=== PATIENT | female | born 1945 | race Caucasian/White ===

== ENCOUNTER 2024-02-10 15:57 | Inpatient (IN) | payer MEDICARE, SELFPAY ==
[2024-02-10] VITALS (27 sets, daily range): BP systolic 137–190; BP diastolic 53–100; PULSE 90–123; TEMP 35.5–36.3; O2SAT 81–97; BMI 13.7; BMI 11.0; BMI 10.6
--- NOTE | 2024-02-10 16:21 | XR_ITS ---
The [address] [address] Patient Name: GIUSEPPE MARTIN MRN: [facility]:[id number] date: 1945 Sex: F Assigned Patient Location: ED.MAIN Current Patient Location: ED.MAIN Accession/Order Number: [id number] Exam Date: 02/10/2024 16:40 Report Date: 02/10/2024 17:28 At the request of: JARED LOPEZ Procedure: XR chest 1V EXAM: XR chest 1V 02/10/2024. FINDINGS: A total of 2 images were obtained. HISTORY: weak XR/XR chest 1V IMPRESSION: The heart size is top normal. Atherosclerotic changes of aorta and its branches are noted. Mild chronic biapical pleural parenchymal fibrotic changes with background pulmonary hyperinflation. No overt edema, failure, effusion or pneumonia otherwise suspected. There is no pneumothorax. Degenerative changes of the spine are evident. There is a compression fracture deformity of the upper lumbar spine faintly noted. This may be better evaluated with lumbar spinal radiographs if indicated. Electronically authenticated by: RENNY FAN Date: 02/10/2024 17:28
--- NOTE | 2024-02-10 16:21 | CT_ITS ---
The [address] [address] Patient Name: GIUSEPPE MARTIN MRN: [facility]:[id number] date: 1945 Sex: F Assigned Patient Location: ED.MAIN Current Patient Location: ED.MAIN Accession/Order Number: [id number] Exam Date: 02/10/2024 17:00 Report Date: 02/10/2024 17:29 At the request of: JARED LOPEZ Procedure: CT head/brain wo con HEAD CT WITHOUT CONTRAST, 02/10/2024 5:00 PM EDT: CLINICAL HISTORY: weak, confused. COMPARISON: None. TECHNIQUE: Noncontrast CT imaging was performed from skull base to the vertex. Sagittal and coronal reconstructions performed. Dose reduction techniques were achieved by using automated exposure control and/or adjustment of mA and/or kV according to patient size and/or use of iterative reconstruction technique. FINDINGS: Ventricular and sulcal size is normal for the patient's age. There are moderate chronic small vessel ischemic changes. 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 There is no mass effect, midline shift or intracranial hemorrhage. There is no evidence of acute infarction. There are no extra axial fluid collections. Visualized paranasal sinuses, mastoid air cells and orbital contents are unremarkable. CT/CT head/brain wo con IMPRESSION: No acute intracranial abnormality. Electronically authenticated by: TYLER JAVIER Date: 02/10/2024 17:29
--- NOTE | 2024-02-10 16:21 | ECG_ITS ---
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
--- NOTE | 2024-02-10 16:23 | ED_ITS ---
HPI HPI - General Adult General Chief complaint: Weakness Stated complaint: WEAKNESS Time Seen by Provider: 02/10/24 15:58 Source: family Mode of arrival: ambulance Limitations: no limitations History of Present Illness HPI narrative: 78-year-old female presents by paramedics from her home for weakness. She lives by herself and apparently her brother was at the house. He called paramedics. The paramedics reported that her house was not well-kept and was disheveled. She had been sitting on the toilet and was covered in feces. She is unable to provide any history at all. At this point no further history is obtainable Related Data Allergies Allergy/AdvReac Type Severity Reaction Status Date / Time No Known Drug Allergies Allergy Verified 02/10/24 17:22 Opioid HPI Opioid Management Most Recent Opioid Data: No Data to Display Review of Systems ROS Narrative A ten point review of systems is negative except as noted above. Exam Narrative Exam Narrative: Nurses note and vital signs reviewed and patient is not hypoxic. General: The patient appears in no acute distress. She is cachectic. Skin: Warm, dry, no pallor noted. There is no rash noted. Head: Normocephalic, atraumatic Eye: Normal conjunctiva, no drainage Ears, Nose, Mouth, and Throat: oral mucosa is dry and there is a black coating on her tongue. Cardiovascular: Regular Rate and Rhythm, tachycardic Respiratory: Patient is in no distress, no accessory muscle use, lungs are clear to auscultation, no wheezing, rales or rhonchi Back: non-tender GI: Soft, scaphoid, no tenderness or mass Musculoskeletal: Extremities are quite thin, no deformity Neurological: She is awake. She knows her name but cannot tell me where she is or what year it is or why she is here Psychiatric: Not uncooperative Constitutional Vital Signs, click to edit/add: Last Vital Signs Temp 96.7 F L 02/10/24 17:42 Pulse 93 H 02/10/24 18:00 Resp 29 H 02/10/24 18:00 BP 137/65 02/10/24 18:00 Pulse Ox 94 L 02/10/24 18:00 O2 Del Method Room Air 02/10/24 16:53 Course Vital Signs Vital signs: Vital Signs Temperature 96 F L 02/10/24 16:01 Pulse Rate 122 H 02/10/24 16:01 Respiratory Rate 22 H 02/10/24 16:01 Blood Pressure 171/97 H 02/10/24 16:01 Pulse Oximetry 96 02/10/24 16:01 Oxygen Delivery Method Room Air 02/10/24 16:01 Temperature 96.7 F L 02/10/24 17:42 Pulse Rate 93 H 02/10/24 18:00 Respiratory Rate 29 H 02/10/24 18:00 Blood Pressure 137/65 02/10/24 18:00 Pulse Oximetry 94 L 02/10/24 18:00 Oxygen Delivery Method Room Air 02/10/24 16:53 Medical Decision Making MDM Narrative Medical decision making narrative: Sodium is mildly elevated at 157. CT brain shows no acute findings and chest x- ray shows no evidence of pneumonia. Urinalysis is not consistent with UTI. Influenza and COVID test are negative. WBC elevated at 19,000. She has a poor social situation. A family member came in and explained that she stays at home and up until now has been able to take care of herself. He feels that she is clearly unable to take care of herself any longer. She states that she has had memory issues which have been getting worse over months. She is being admitted. I do not have a focus of an infection. Differential Diagnosis Differential Diagnosis: Anemia, dehydration, stroke, dementia, pneumonia, UTI Lab Data Lab results reviewed: Yes I reviewed the patient's lab results Labs: Lab Results 02/10/24 02/10/24 02/10/24 Range/Units 16:25 16:30 16:44 WBC 19.4 H (4.0-11.0) 10^3/uL RBC 5.16 (4.20-5.40) 10^6/uL Hgb 16.1 H (12.0-16.0) g/dL Hct 50.8 H (36.0-48.0) % MCV 98.4 (81.0-99.0) fL MCH 31.2 (26.7-34.0) pg MCHC 31.7 (29.9-35.2) g/dL RDW 14.1 (11.0-15.0) % Plt Count 357 (150-450) 10^3/uL MPV 11.0 (9.5-13.5) fL Neut % (Auto) 83.5 H (43.0-75.0) % Lymph % (Auto) 7.7 L (20.5-60.0) % [place] % (Auto) 7.2 (1.7-12.0) % Eos % (Auto) 0.0 L (0.9-7.0) % Baso % (Auto) 0.3 (0.2-2.0) % Neut # (Auto) 16.2 H (1.4-6.5) 10^3/uL Lymph # (Auto) 1.5 (1.2-3.8) 10^3/uL [place] # (Auto) 1.4 H (0.3-0.8) 10^3/uL Eos # (Auto) 0.0 (0.0-0.7) 10^3/uL Baso # (Auto) 0.1 (0.0-0.1) 10^3/uL Abs Immat Gran (auto) 0.26 H (0.00-0.03) 10^3/uL Imm/Tot Granulo (auto) 1.3 H (0.0-0.5) % Sodium 157 H (136-145) mmol/L Potassium 3.6 (3.5-5.1) mmol/L Chloride 116 H (98-107) mmol/L Carbon Dioxide 25.2 (21.0-32.0) mmol/L Anion Gap 19.4 BUN 52.0 H (7.0-18.0) mg/dL Creatinine 1.20 H (0.55-1.02) mg/dL Est GFR ( Amer) 52 L (>=60) Est GFR (Non-Af Amer) 43 L (>=60) BUN/Creatinine Ratio 43.3 Glucose 141 H (74-106) mg/dL Lactate 3.0 H* (0.4-2.0) mmol/L Calcium 9.8 (8.5-10.1) mg/dL Total Bilirubin 0.8 (0.2-1.0) mg/dL Direct Bilirubin 0.2 (0.0-0.2) mg/dL AST 16 (15-37) U/L ALT 14 (14-59) U/L Alkaline Phosphatase 101 (46-116) U/L Troponin I High Sens 21.5 (4.0-51.3) pg/mL Total Protein 8.6 H (6.4-8.2) g/dL Albumin 3.7 (3.4-5.0) g/dL Globulin 4.9 g/dL Albumin/Globulin Ratio 0.8 Amylase 33 (25-115) U/L Lipase 37.0 (16.0-77.0) U/L Urine Color Yellow (YELLOW) Urine Clarity Clear (CLEAR) Urine pH 5.5 (5.0-9.0) Ur Specific [place] >=1.030 A (1.005-1.025) Urine Protein 100 A (NEG/TRACE) mg/dL Urine Glucose (UA) Negative (NEGATIVE) mg/dL Urine Ketones Trace A (NEGATIVE) mg/dL Urine Occult Blood Small A (NEGATIVE) Urine Nitrite Negative (NEGATIVE) Urine Bilirubin Small A (NEGATIVE) Urine Urobilinogen 1.0 (0.2-1.0) EU/dL Ur Leukocyte Esterase Negative (NEGATIVE) Urine RBC 0-2 (0-2) #/HPF Urine WBC 0-2 A (NONE SEEN) #/HPF Ur Squamous Epith Cells None seen (NONE/RARE) #/LPF Urine Crystals None seen (None Seen) #/HPF Urine Bacteria None seen (NONE SEEN) #/HPF Urine Casts None seen (NONE SEEN) #/LPF Urine Mucus Small A (NONE SEEN) Ur Culture Indicated? Already ordered Influenza Type A Ag Negative Influenza Type B Ag Negative SARS-CoV-2 Ag (CV2AG) Negative (NEGATIVE) Imaging Data Chest x-ray: Radiologist's impression: ITS Impressions Chest X-Ray 02/10/24 16:21 IMPRESSION: The heart size is top normal. Atherosclerotic changes of aorta and its branches are noted. Mild chronic biapical pleural parenchymal fibrotic changes with background pulmonary hyperinflation. No overt edema, failure, effusion or pneumonia otherwise suspected. There is no pneumothorax. Degenerative changes of the spine are evident. There is a compression fracture deformity of the upper lumbar spine faintly noted. This may be better evaluated with lumbar spinal radiographs if indicated. Electronically authenticated by: RENNY FAN Date: 02/10/2024 17:[address] 02/10/24 16:21 IMPRESSION: No acute intracranial abnormality. Electronically authenticated by: TYLER JAVIER Date: 02/10/2024 17:29 ECG Data Attestation: I personally reviewed and interpreted this ECG as follows: (EKG on my interpretation shows sinus tachycardia with a rate of 120) Discharge Plan Discharge Chief Complaint: Weakness Clinical Impression: Poor social situation, Dementia, Hypernatremia, Leukocytosis Patient Disposition: Admitted As Inpatient Time of Disposition Decision: 18:34 Condition: Fair
[2024-02-10 16:59] LABS: Basophils Absolute Auto 0.1 10^3/uL (0.0-0.1); Basophils Percent Auto 0.3 % (0.2-2.0); Hematocrit 50.8 % (36.0-48.0); Hemoglobin 16.1 g/dL (12.0-16.0); Immature Granulocytes Abs Auto 0.26 10^3/uL (0.00-0.03); Immature Granulocytes Pct Auto 1.3 % (0.0-0.5); Lymphocytes Absolute Auto 1.5 10^3/uL (1.2-3.8); Lymphocytes Percent Auto 7.7 % (20.5-60.0); Mean Corpuscular HGB Conc 31.7 g/dL (29.9-35.2); Mean Corpuscular Hemoglobin 31.2 pg (26.7-34.0); Mean Corpuscular Volume 98.4 fL (81.0-99.0); Monocytes Absolute Auto 1.4 10^3/uL (0.3-0.8); Monocytes Percent Auto 7.2 % (1.7-12.0); Neutrophils Absolute Auto 16.2 10^3/uL (1.4-6.5); Neutrophils Percent Auto 83.5 % (43.0-75.0); Platelet Count 357 10^3/uL (150-450); Red Blood Count 5.16 10^6/uL (4.20-5.40); Red Cell Distribution Width 14.1 % (11.0-15.0); White Blood Count 19.4 10^3/uL (4.0-11.0)
[2024-02-10 17:00] LABS: Bilirubin Urine SMALL (NEGATIVE); Blood Urine SMALL (NEGATIVE); Clarity Urine CLEAR (CLEAR); Color Urine YELLOW (YELLOW); Glucose Urine UA NEGATIVE (NEGATIVE); Ketones Urine TRACE mg/dL (NEGATIVE); Leukocyte Esterase Urine NEGATIVE (NEGATIVE); Nitrite Urine NEGATIVE (NEGATIVE); Protein Urine 100 mg/dL (NEG/TRACE); Specific Gravity Urine >=1.030 (1.005-1.025); pH Urine 5.5 (5.0-9.0)
[2024-02-10 17:08] LABS: Influenza Virus A Antigen Negative; Influenza Virus B Antigen Negative; Internal Control Within Normal Limits; SARS-CoV-2 Ag NEGATIVE (NEGATIVE)
[2024-02-10 17:12] LABS: Bacteria Urine NONE SEEN #/HPF (NONE SEEN); Cast Seen? NONE SEEN #/LPF (NONE SEEN); Crystals Seen? None Seen #/HPF (None Seen); Mucus Urine SMALL (NONE SEEN); RBC Urine 0-2 #/HPF (0-2); Squamous Epithelial Cell Urine NONE SEEN #/LPF (NONE/RARE); Urine Culture Indicated ALREADY ORDERED; WBC Urine 0-2 #/HPF (NONE SEEN)
[2024-02-10 17:21] LABS: Alanine Aminotransferase 14 U/L (14-59); Albumin Globulin Ratio 0.8; Albumin Level 3.7 g/dL (3.4-5.0); Alkaline Phosphatase 101 U/L (46-116); Amylase 33 U/L (25-115); Anion Gap 19.4; Aspartate Amino Transferase 16 U/L (15-37); BUN Creatinine Ratio 43.3; Bilirubin Direct 0.2 mg/dL (0.0-0.2); Bilirubin Total 0.8 mg/dL (0.2-1.0); Calcium 9.8 mg/dL (8.5-10.1); Carbon Dioxide 25.2 mmol/L (21.0-32.0); Chloride 116 mmol/L (98-107); Estimated GFR (African America 52 (>=60); Estimated GFR (Non-African Ame 43 (>=60); Globulin 4.9 g/dL; Glucose 141 mg/dL (74-106); Potassium 3.6 mmol/L (3.5-5.1); Sodium 157 mmol/L (136-145); Total Protein 8.6 g/dL (6.4-8.2); Troponin I High Sensitivity 21.5 pg/mL (4.0-51.3)
--- NOTE | 2024-02-10 21:03 | PC.NURSE ---
Upon admission to floor patient was given a bed bath and oral care provided. Mouth was black in appearance and had a bm odor. Mouth care given. Patient thin in appearance. Patient repeated several times I have to pee even with redirection that dia was in place. Unable to show comprehension. Patient only oriented to name but could not tell me her date of or where she lived. Offered snack and drink. Patient quickly finished both. Waffle mattress in place for skin breakdown prevention.
[2024-02-10] MEDS: 0.9 % SODIUM CHLORIDE 1,000 ML 60 ML IV (21:16)
[2024-02-11] VITALS (17 sets, daily range): BP systolic 145–161; BP diastolic 53–72; PULSE 74–114; TEMP 36.3–36.9; O2SAT 93–98; BMI 10.6
--- NOTE | 2024-02-11 04:24 | PC.NURSE ---
preventative mepilex applied to bony area on coccyx
[2024-02-11 04:56] LABS: Basophils Absolute Auto 0.1 10^3/uL (0.0-0.1); Basophils Percent Auto 0.3 % (0.2-2.0); Eosinophils Percent Auto 0.1 % (0.9-7.0); Hemoglobin 14.2 g/dL (12.0-16.0); Immature Granulocytes Abs Auto 0.18 10^3/uL (0.00-0.03); Immature Granulocytes Pct Auto 0.8 % (0.0-0.5); Lymphocytes Absolute Auto 1.6 10^3/uL (1.2-3.8); Lymphocytes Percent Auto 7.3 % (20.5-60.0); Mean Corpuscular HGB Conc 32.3 g/dL (29.9-35.2); Mean Corpuscular Hemoglobin 31.5 pg (26.7-34.0); Mean Corpuscular Volume 97.6 fL (81.0-99.0); Monocytes Absolute Auto 1.5 10^3/uL (0.3-0.8); Neutrophils Absolute Auto 17.9 10^3/uL (1.4-6.5); Neutrophils Percent Auto 84.5 % (43.0-75.0); Platelet Count 242 10^3/uL (150-450); Red Blood Count 4.51 10^6/uL (4.20-5.40); Red Cell Distribution Width 14.2 % (11.0-15.0); White Blood Count 21.2 10^3/uL (4.0-11.0)
[2024-02-11 06:02] LABS: Alanine Aminotransferase 11 U/L (14-59); Albumin Globulin Ratio 0.7; Albumin Level 2.8 g/dL (3.4-5.0); Alkaline Phosphatase 82 U/L (46-116); Aspartate Amino Transferase 13 U/L (15-37); BUN Creatinine Ratio 52.4; Bilirubin Total 0.6 mg/dL (0.2-1.0); Calcium 8.7 mg/dL (8.5-10.1); Carbon Dioxide 25.3 mmol/L (21.0-32.0); Estimated GFR (African America >60 (>=60); Estimated GFR (Non-African Ame >60 (>=60); Globulin 3.9 g/dL; Glucose 102 mg/dL (74-106); Potassium 3.3 mmol/L (3.5-5.1); Sodium 158 mmol/L (136-145); Total Protein 6.7 g/dL (6.4-8.2)
[2024-02-11 06:06] LABS: Chloride 122 mmol/L (98-107)
--- OUTSIDE RECORDS SUMMARY | 2024-02-11 08:44 | XMS_ITS | CCD ---
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 Name Role Phone Addi CAMACHO Primary Care Physician Austyn Choi Admitting Unavailable Austyn Choi Attending Unavailable Austyn Choi Attending Unavailable Austyn Choi Attending Unavailable Austyn Choi Attending Unavailable Austyn Choi Admitting Unavailable Austyn Choi Attending Unavailable Allergies Allergy Classification Reported Allergen(s) Allergy Type Date of Onset Reaction(s) Facility (1 source) No Known Medication Allergies; Translations: [No Known Medication Allergies] Propensity to adverse reactions (disorder) [facility] Repository Medications Current Medications Medication Drug Class(es) Dates Sig (Normalized) Sig (Original) amLODIPine 5 mg oral tablet (2 sources) Dihydropyridine Calcium Channel Pavel Start: 08-02-2023 take 1 tablet by mouth once daily Norvasc 5 mg Tab 5 mg = 1 tab(s), Oral, Daily, # 90 tab(s), Refills(s) 0, Pharmacy: [facility]/pharmacy #[id number], 142.2, cm, 08/02/23 13:35:00 EDT, Height/Length Dosing, 29.8, kg, 08/02/23 13:35:00 EDT, Weight Dosing Start Date: 08/02/23 Status: Ordered Problems Problem Classification Problem Date Documented Date Episodic/Chronic E Codes: Fall (1 source) Fall; Translations: [Unspecified fall, initial encounter] Onset: 05-28-2022 Episodic Essential hypertension (3 sources) Essential hypertension; Translations: [Essential (primary) hypertension] Onset: 05-28-2022 Chronic Other ear and sense organ disorders (2 sources) Hearing loss 08-02-2023 Chronic Other injuries and conditions due to external causes (1 source) Injury of head; Translations: [Unspecified injury of head, initial encounter] Onset: 05-28-2022 Episodic Other non-traumatic joint disorders (2 sources) Shoulder pain 08-02-2023 Episodic Skull and face fractures (1 source) Closed fracture of nasal bones; Translations: [Fracture of nasal bones, initial encounter for closed fracture] Onset: 05-28-2022 Episodic Substance-related disorders (3 sources) Smoker 05-28-2022 Chronic Comment on above: Added secondary to d ocumentation in Social History. Superficial injury; contusion (1 source) Abrasion of head; Translations: [Abrasion of other part of head, initial encounter] Onset: 05-28-2022 Episodic Results Test Name Value Interpretation Reference Range Facility Consent for Flu Vaccineon Consent for Flu Vaccine [id number] #1.00TIFF Normal [facility] Physician Referralon 023 Physician Referral [id number] 7#1.00TIFF Normal [facility] Family Medicine Office/Clini c Noteon 09-06-2023 Family Medicine Office/Clinic Note HPI Staff Kae is a 77 year old female presenting for one month follow up htn NOBLE started Norvasc 5mg Tolerating the norvasc flu: will take today History of Present Illness - Here for BP follow up. - NO issues with meds Review of Systems PHQ Score Initial Depression Screen Score: 0 SCORE Physical Exam Vitals & Measurements T: 37.0 ?C(Temporal Artery) HR: 64(Peripheral) RR: 16 BP: 124/68 SpO2: 99% HT: 56 in HT: 142.2 cm WT: 28.5 kg WT: 62.7 lb BMI: 14.09 General: alert, no acute distress, Underweight ENMT: oral mucosa moist, Cardiovascular: regular rate and rhythm, normal peripheral perfusion Respiratory: Lungs CTA, respirations non labored Extremities: no deformity, no trauma Neurological: oriented x 4, LOC appropriate for age, CN II-XII intact, motor strength equal & normal bilaterally, speech normal Abdomen: Soft, Nontender, Non-distended, + BS Assessment/Plan 1. HTN (hypertension) (I10: Essential (primary) hypertension) - At goal. - Will refill - Follow up in 6 months Ordered: influenza virus vaccine, inactivated, 0.5 mL, Injection, IntraMuscular, Once, Stop date 09/06/23 15:00:00 EST, Routine, Start date 09/06/23 15:00:00 EST Body Mass Index (BMI) documented 3008F Current tobacco smoker 1034F Depression Screening Negative 3352F [facility] Internal Ambulatory Referral Influenza immunization administered or previously received 4274F Most recent diastolic blood pressure <80 mm Hg 3078F Patient screen for fall risk: no falls in last year or 1 fall with no injury in last year 1101F Systolic BP <130 mm Hg (Most Recent) 3074F 2. Decreased activities of daily living (ADL) (Z78.9: Other specified health status) - Pt lives alone and does not drive - Face to Face was had and discussed Home health and the need for Home Health - Will look at PT,OT, SW, Nursing Ordered: influenza virus vaccine, inactivated, 0.5 mL, Injection, IntraMuscular, Once, Stop date 09/06/23 15:00:00 EST, Routine, Start date 09/06/23 15:00:00 EST Body Mass Index (BMI) documented 3008F Current tobacco smoker 1034F Depression Screening Negative 3352F [facility] Internal Ambulatory Referral Influenza immunization administered or previously received 4274F Most recent diastolic blood pressure <80 mm Hg 3078F Patient screen for fall risk: no falls in last year or 1 fall with no injury in last year 1101F Systolic BP <130 mm Hg (Most Recent) 3074F 3. 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 hearing loss, bilateral) - Stable Ordered: influenza virus vaccine, inactivated, 0.5 mL, Injection, IntraMuscular, Once, Stop date 09/06/23 15:00:00 EST, Routine, Start date 09/06/23 15:00:00 EST Body Mass Index (BMI) documented 3008F Current tobacco smoker 1034F Depression Screening Negative 3352F [facility] Internal Ambulatory Referral Influenza immunization administered or previously received 4274F Most recent diastolic blood pressure <80 mm Hg 3078F Patient screen for fall risk: no falls in last year or 1 fall with no injury in last year 1101F Systolic BP <130 mm Hg (Most Recent) 3074F 4. Other chronic pain (G89.29: Other chronic pain) - Resolved? - Unsure if this is completely resolved Ordered: influenza virus vaccine, inactivated, 0.5 mL, Injection, IntraMuscular, Once, Stop date 09/06/23 15:00:00 EST, Routine, Start date 09/06/23 15:00:00 EST Body Mass Index (BMI) documented 3008F Current tobacco smoker 1034F Depression Screening Negative 3352F [facility] Internal Ambulatory Referral Influenza immunization administered or previously received 4274F Most recent diastolic blood pressure <80 mm Hg 3078F Patient screen for fall risk: no falls in last year or 1 fall with no injury in last year 1101F Systolic BP <130 mm Hg (Most Recent) 3074F 5. Chronic shoulder pain, unspecified laterality (M25.519: Pain in unspecified shoulder) - As above Ordered: influenza virus vaccine, inactivated, 0.5 mL, Injection, IntraMuscular, Once, Stop date 09/06/23 15:00:00 EST, Routine, Start date 09/06/23 15:00:00 EST Body Mass Index (BMI) documented 3008F Current tobacco smoker 1034F Depression Screening Negative 3352F [facility] Internal Ambulatory Referral Influenza immunization administered or previously received 4274F Most recent diastolic blood pressure <80 mm Hg 3078F Patient screen for fall risk: no falls in last year or 1 fall with no injury in last year 1101F Systolic BP <130 mm Hg (Most Recent) 3074F 6. Smoker (F17.200: Nicotine dependence, unspecified, uncomplicated) - Advised Smoking Cessation Ordered: Body Mass Index (BMI) documented 3008F Current tobacco smoker 1034F Depression Screening Negative 3352F Influenza immunization administered or previously received 4274F Most recent diastolic blood pressure <80 mm Hg 3078F Patient screen for fall risk: no falls in last year or 1 fall with no injury in last year 1101F Systolic BP <130 mm Hg (Most Recent) 3074F 7. BMI less than 19,adult (Z68.1: Tito (more content not included)... Normal [facility] Comment on above: Result Comment: Elec tronically Signed By: Jimbo HOOVER, Austyn Luo\Date and Time Signed: 09/06/23 15:17 EST Physician Referralon 023 Physician Referral [id number] 01#1.00TIFF Normal [facility] Family Medicine Office/Clini c Noteon 08-07-2023 Family Medicine Office/Clinic Note HPI Staff Kae is a 77 year old female presenting to establish care Would like a wellness PE no dr in a few years Establish Care: History: deafness Last provider: dr sepulveda maybe?? Any recent labs: none Health Maintenance UTD: Colonoscopy: never Mammogram: none Pelvic/Pap: hysterectomy flu: not sure Acute: Current issues/complaints: fell a while back and hurt her right shoulder brother expresses concerns that she doesn't do anything, she needs her teeth taken care of and won't go to the dentist, eats lunch meat and simple foods History of Present Illness Kea Martin is a 77-year-old female who presents today for an evaluation. She is accompanied by her brother. The patient has a history of hypertension and has been non-compliant with her prescribed antihypertensive medications. Her current blood pressure reading is 154/90 mmHg, showing a decrease from a previous reading of 198/106 mmHg with a heart rate of 118 bpm in 05/2022, which was taken shortly after sustaining a facial fracture. The patient's brother reports that the patient has a smoking habit, although the patient herself claims to only smoke occasionally. The patient's brother confirms that there is a check on her account and asserts that the patient's condition is stable. He was unaware of the patient's facial fracture, noting only ecchymosis on her face. The patient failed to attend a scheduled follow-up with an ENT. Her brother also reports that the patient is experiencing pain in her right shoulder. Review of Systems PHQ Score Initial Depression Screen Score: 0 Physical Exam Vitals & Measurements T: 37.1 ?C(Temporal Artery) HR: 88(Peripheral) RR: 16 BP: 154/90 SpO2: 97% HT: 56 in HT: 142.2 cm WT: 29.8 kg WT: 65.56 lb BMI: 14.74 General: alert, no acute distress Cardiovascular: regular rate and rhythm, normal peripheral perfusion Respiratory: Lung sounds are very diminished bilaterally. No wheezing or rhonchi noted. Extremities: no deformity, no trauma. Diminished movement of the right arm secondary to pain. Neurological: oriented x 4, LOC appropriate for age, CN II-XII intact, motor strength equal & normal bilaterally, speech normal Assessment/Plan 1. HTN (hypertension) (I10: Essential (primary) hypertension) Patient is not well controlled. Patient has not been taking medication. Blood pressure today was 154/90 mmHg. In 05/2022, it was 198/106 mmHg with a heart rate of 118 bpm. However, that was right after patient did have a facial fracture. We will start Norvasc 5 mg and see back in a month. 2. Deafness (H91.90: Unspecified hearing loss, unspecified ear) Patient uses hearing aids, but I am concerned that the patient is still having hard time hearing despite trying to answer appropriately. Brother does help with this. 3. Shoulder pain (M25.519: Pain in unspecified shoulder) We will send an x-ray to the [facility] for them to get the left shoulder looked at to make sure that there are no other issues. 4. Smoker (F17.200: Nicotine dependence, unspecified, uncomplicated) Encouraged the patient not to smoke as there is concern for COPD given that the patient does not have deep breaths. 5. Body mass index (BMI) less than 19 (Z68.1: Body mass index [BMI] 19.9 or less, adult) BMI education given. 6. Facial fracture (S02.92XA: Unspecified fracture of facial bones, initial encounter for closed fracture) This is a nondisplaced nasal bone fracture. Patient was to follow with ENT. We will send to ENT today for further work-up. Again, we will see the patient back in 3 to 4 weeks to help improve continuity of care with this patient. Portions of this record may have been created with voice recognition artificial intelligence software, specifically Hammer[employer], OneTouch and or [employer]. Substitutions may have occurred due to the inherent limitations of voice recognition and artificial intelligence software. Documentation services were performed after the patient or guardian consented to allow [employer] to record this visit. EMILIE learning solutions specialist and provider reviewed before signing. EMILIE: Dhevie Rigor Follow-up No qualifying data available Problem List/Past Medical History Ongoing Deafness HTN (hypertension) Shoulder pain Smoker Historical No qualifying data Procedure/Surgical History Hysterectomy, Oophorectomy. Medications Norvasc 5 mg Tab, 5 mg= 1 tab(s), Oral, Daily Allergies No Known Medication Allergies Social History Alcohol - Denies Alcohol Use, 05/28/2022 Substance Abuse - Denies Substance Abuse, 05/28/2022 Tobacco - High Risk, 05/28/2022 10 or more cigarettes (1/2 pack or more)/day in last 30 days Tobacco Use:., 08/02/2023 Family History Diabetes mellitus type 1: Father. Immunizations Vaccine Date Status Comments diphtheria/pertussis , acel/tetanus adult 05/28/2022 Given Left deltoid influenza virus vaccine, inactivated 07/28/2021 Recorde (more content not included)... [facility] Comment on above: Result Comment: Elec tronically Signed By: Austyn Choi MD\.br\Date and Time Signed: 08/07/23 08:13 EST\.br\Electronically Co-Signed By: Jensen Johns\.br\Date and Time Co-Signed: 08/02/23 15:56 EDT Interdisciplinary Note - Soc ial Workeron 08-06-2023 Interdisciplinary Note - Inspector Hairspring Consult for ambulatory SW received. Upon chart review it is noted that HH services were to be established through [facility] and this would include the ambulatory SW; order not put in correctly. [facility] is working with the PCP's office to get the corrected HH order and a salesperson new cars so that they can provide services, pending patient is home bound. SW will remain available. [facility] Physician Referralon 023 Physician Referral [id number] 9#1.00TIFF [facility] Physician Referral [id number] 0#1.00TIFF [facility] Ambulatory Visit Summaryon 1 10-02-2022 Ambulatory Visit Summary KAE MARTIN :1945 Visit Date:08/02/2023 Ambulatory Visit Instructions Your Diagnosis HTN (hypertension) Deafness Shoulder pain Smoker Body mass index (BMI) less than 19 Facial fracture Tests Performed CBC w/ Auto Diff -- Results Pending -- CMP -- Results Pending -- Lipid Panel -- Results Pending -- Please visit your patient portal for your results or contact your primary care physician. Your Care Team Attending Physician - Austyn Choi MD Primary Care Physician - Addi CAMACHO DO This Is Your Medications List amlodipine (Norvasc 5 mg Tab) Procedures Performed Hysterectomy, Oophorectomy. Discharge Vitals Temperature (Temporal Artery) 37.1 ?C Heart Rate (Peripheral) 88 Respiratory Rate 16 Blood Pressure 154/90 Height 142.2 cm Height 56 in Weight 29.8 kg Weight 65.56 lb BMI 14.74 What to do next Scheduled Follow-Up Appointments 2022 2:20 PM EST With: Austyn Choi MD Where: [facility] [place] Normal [facility] Auto Diffon 08-02-2023 Basophils/100 WBC (Bld) 0.6 % Normal 0.0-2.0 [facility] Comment on above: Order Comment: Order Added by Discern Expert. Performed By: #### 2 109450, 4383638, 3488299, [id number], [id number] #### [facility] [address] [place] [address] Basophils/Leukocytes Auto (Bld) [Pure # fraction] 0.1 E9/L Normal 0.0-0.2 [facility] Comment on above: Order Comment: Order Added by Discern Expert. Performed By: #### 2 536049, 6600020, 5279159, [id number], [id number] #### [facility] [address] [place] [address] Eosinophils/100 WBC (Bld) 1.4 % Normal 0.0-8.0 [facility] Comment on above: Order Comment: Order Added by Discern Expert. Performed By: #### 2 577388, 8509845, 5103053, 47022754, 4405309 #### [facility] [address] [place] [address] Eosinophils/Leukocyte s Auto (Bld) [Pure # fraction] 0.1 E9/L Normal 0.0-0.5 [facility] Comment on above: Order Comment: Order Added by Discern Expert. Performed By: #### 2 289012, 7274061, 5079491, 88396710, [id number] #### [facility] [address] [place] [address] Lymphocytes/100 WBC (Bld) 17.9 % Normal 14.0-50.0 [facility] Comment on above: Order Comment: Order Added by Discern Expert. Performed By: #### 2 184106, 3229203, 8120473, 81780241, 0077098 #### [facility] [address] [place] [address] Lymphocytes/Leukocyte s Auto (Bld) [Pure # fraction] 1.6 E9/L Normal 1.0-4.0 [facility] Comment on above: Order Comment: Order Added by Ani Expert. Performed By: #### 2 165325, 2391753, 3428076, 62268446, [id number] #### [facility] [address] [place] [address] Monocytes/100 WBC (Bld) 8.7 % Normal 4.0-14.0 [facility] Comment on above: Order Comment: Order Added by Discern Expert. Performed By: #### 2 322949, 8847172, 3532143, 69072987, 2248834 #### [facility] [address] [place] [address] Monocytes/Leukocytes Auto (Bld) [Pure # fraction] 0.8 E9/L Normal 0.2-1.0 [facility] Comment on above: Order Comment: Order Added by Ani Expert. Performed By: #### 2 755628, 3292893, 5876625, 57112203, 8108307 #### [facility] [address] [place] [address] Neutrophils/100 WBC (Bld) 71.4 % Normal 36.0-75.0 [facility] Comment on above: Order Comment: Order Added by Ani Expert. Performed By: #### 2 644260, 2035762, 9885617, 87607856, 9081998 #### [facility] [address] [place] [address] Neutrophils/Leukocyte s Auto (Bld) [Pure # fraction] 6.4 E9/L Normal 2.0-7.5 [facility] Comment on above: Order Comment: Order Added by Discern Expert. Performed By: #### 2 008190, 0862506, 4344199, 89371695, 0349817 #### [facility] [address] [place] [address] CBC w/ Auto Diffon 3 Erythrocyte distribution width (RBC) [Ratio] 18.1 % High 10.9-14.2 [facility] Comment on above: Performed By: #### 2 858111, 2375556, 0497754, 13628443, 3114862 #### [facility] [address] [place] [address] Hematocrit (Bld) [Volume fraction] 39.7 % Normal 34.0-46.0 [facility] Comment on above: Performed By: #### 2 302402, 5424387, 1321966, 18321592, 9070220 #### [facility] [address] [place] [address] Hemoglobin (Bld) [Mass/Vol] 13.2 g/dL Normal 12.0-16.0 [facility] Comment on above: Performed By: #### 2 749013, 7867594, 1479350, 76974616, 5147691 #### [facility] [address] [place] [address] MCH (RBC) [Entitic mass] 31.4 pg Normal 27.0-34.0 [facility] Comment on above: Performed By: #### 2 310685, 5616766, 7908185, 04974087, 5630405 #### [facility] [address] [place] [address] MCHC (RBC) [Mass/Vol] 33.2 g/dL Normal 31.4-36.0 [facility] Comment on above: Performed By: #### 2 267484, 4990377, 2183832, 15248242, 6785918 #### [facility] [address] [place] [address] MCV (RBC) [Entitic vol] 94.7 fL Normal 80.0-100.0 [facility] Comment on above: Performed By: #### 2 042312, 5888009, 5600067, 59470821, 7498157 #### [facility] [address] [place] [address] Platelet mean volume (Bld) [Entitic vol] 10.0 fL Normal 6.4-10.8 [facility] Comment on above: Performed By: #### 2 851849, 3304229, 1025188, 55506089, 9683403 #### [facility] [address] [place] [address] Platelets (Bld) [#/Vol] 299.0 E9/L Normal 150.0-500.0 [facility] Comment on above: Performed By: #### 2 399502, 9807191, 0886008, 05865399, 1674160 #### [facility] [address] [place] [address] RBC (Bld) [#/Vol] 4.2 E12/L Low 4.3-5.9 [facility] Comment on above: Performed By: #### 2 947992, 9954230, 5611376, 18292403, 2940741 #### [facility] [address] [place] [address] WBC corrected for nucl RBC Auto (Bld) [#/Vol] 9.0 E9/L Normal 4.0-11.0 [facility] Comment on above: Performed By: #### 2 734017, 8564679, 2303348, 75950547, 1406294 #### [facility] [address] [place] [address] CHEMISTRYOrdered By: SYSTEM SYSTEM on 08-02-2023 Albumin [Mass/Vol] 3.9 g/dL Normal 3.3 - 5.0 gm/dL [facility] Albumin/Globulin [Mass ratio] 1.2 {ratio} Normal 1.1 - 2.2 [facility] ALP [Catalytic activity/Vol] 66 [iU]/d Normal 21 - 98 Int._Unit/L [facility] ALT No additional P-5'-P [Catalytic activity/Vol] 12 [iU]/d Normal 6 - 46 Int._Unit/L [facility] Anion gap [Moles/Vol] 15 mmol/L Normal 6 - 16 mEq/L [facility] AST [Catalytic activity/Vol] 17 [iU]/d Normal 5 - 43 Int._Unit/L [facility] Bilirubin [Mass/Vol] 0.3 mg/dL Normal 0.0 - 1 .1 mg/dL [facility] Calcium [Mass/Vol] 9.5 mg/dL Normal 8.9 - 11. 1 mg/dL [facility] Chloride [Moles/Vol] 106 mmol/L Normal 101 - 1 11 mmol/L [facility] Cholesterol [Mass/Vol] 200 mg/dL Normal 120 - 200 mg/dL [facility] Cholesterol in HDL [Mass/Vol] 59 mg/dL Invalid Interpretation Code [facility] Comment on above: Interpretive Data: H DL > or equal to 60 mg/dL: Low cardiovascular risk HDL < 40 mg/dL : High cardiovascular risk Cholesterol in LDL [Mass/Vol] 123 mg/dL Normal <=129mg/dL [facility] Cholesterol in VLDL [Mass/Vol] 19 mg/dL Normal 7 - 40 mg/dL [facility] CO2 [Moles/Vol] 26 mmol/L Normal 21 - 31 mmol/L [facility] Creatinine [Mass/Vol] 0.8 mg/dL Normal 0.5 - 1.3 mg/dL [facility] GFR/1.73 sq M.predicted among non-blacks MDRD (S/P/Bld) [Vol rate/Area] 75 mL/min/1.73 m2 Normal >=59mL/min/1. 73 m2 [facility] Comment on above: Interpretive Data: C hronic kidney disease could be indicated at eGFR's of less than 60 mL/min/1.73m2. Kidney failure is indicated at less than 15 mL/min/1.73m2. Globulin (S) [Mass/Vol] 3.2 g/dL Normal 1.4 - 4.0 gm/dL [facility] Glucose [Mass/Vol] 124 mg/dL Normal 55 - 199 mg/dL [facility] Comment on above: Interpretive Data: I f this glucose result represents a fasting glucose, interpretation should refer to the following reference range: 55-99 mg/dL Potassium [Moles/Vol] 4.5 mmol/L Normal 3.5 - 5.3 mmol/L [facility] Protein [Mass/Vol] 7.1 g/dL Normal 6.0 - 7.8 gm/dL [facility] Sodium [Moles/Vol] 142 mmol/L Normal 135 - 145 mmol/L [facility] Triglyceride [Mass/Vol] 93 mg/dL Normal <=149mg/dL [facility] Urea nitrogen [Mass/Vol] 36 mg/dL High 5 - 21 mg/dL [facility] Urea nitrogen/Creatinine [Mass ratio] 45 mg/mg High 10 - 20 [facility] CMPon 08-02-2023 Albumin [Mass/Vol] 3.9 g/dL Normal 3.3-5.0 [facility] Comment on above: Performed By: #### 2 459584, 5491725, 9249636, 91865821, 2237898 #### [facility] [address] [place] [address] Albumin/Globulin (S) [Mass conc ratio] 1.2 Normal 1.1-2.2 [facility] Comment on above: Performed By: #### 2 028335, 2954162, 1622778, 93539746, 9413644 #### [facility] [address] [place] [address] ALP [Catalytic activity/Vol] 66 Int._Unit/L Normal 21-98 [facility] Comment on above: Performed By: #### 2 583616, 1319439, 2702321, 21146189, [id number] #### [facility] [address] [place] [address] ALT No additional P-5'-P [Catalytic activity/Vol] 12 Int._Unit/L Normal 6-46 [facility] Comment on above: Performed By: #### 2 [id number], 2219067, 7086986, [id number], [id number] #### [facility] [address] [place] [address] Anion gap [Moles/Vol] 15 mmol/L Normal 6-16 [facility] Comment on above: Performed By: #### 2 098534, 1328248, 1901535, 02275101, 5986152 #### [facility] [address] [place] [address] AST [Catalytic activity/Vol] 17 Int._Unit/L Normal 5-43 [facility] Comment on above: Performed By: #### 2 185123, 6653500, 1581315, 28478344, 5581912 #### [facility] [address] [place] [address] Bilirubin [Mass/Vol] 0.3 mg/dL Normal 0.0-1.1 [facility] Comment on above: Performed By: #### 2 914105, 9091372, 8944754, 97870280, 0563839 #### [facility] [address] [place] [address] Calcium [Mass/Vol] 9.5 mg/dL Normal 8.9-11.1 [facility] Comment on above: Performed By: #### 2 387758, 7204427, 5825774, [id number], 6783547 #### [facility] [address] [place] [address] Chloride [Moles/Vol] 106 mmol/L Normal 101-111 [facility] Comment on above: Performed By: #### 2 610142, 4041509, 4520915, 23304788, 0993416 #### [facility] [address] [place] [address] CO2 [Moles/Vol] 26 mmol/L Normal 21-31 [facility] Comment on above: Performed By: #### 2 439069, 5025720, 5137747, 58842294, 7145829 #### [facility] [address] [place] [address] Creatinine [Mass/Vol] 0.8 mg/dL Normal 0.5-1.3 [facility] Comment on above: Performed By: #### 2 230266, 3574197, 0958307, 74516211, 9089511 #### [facility] [address] [place] [address] Globulin (S) [Mass/Vol] 3.2 g/dL Normal 1.4-4.0 [facility] Comment on above: Performed By: #### 2 235725, 4308221, 8450250, 79647146, 9642740 #### [facility] [address] [place] [address] Glucose [Mass/Vol] 124 mg/dL Normal 55-199 [facility] Comment on above: Result Comment: If t his glucose result represents a fasting glucose, interpretation should refer to the following reference range: 55-99 mg/dL Performed By: #### 2 440479, 2136258, 6762986, 73928129, 3665536 #### [facility] [address] [place] [address] Potassium [Moles/Vol] 4.5 mmol/L Normal 3.5-5.3 [facility] Comment on above: Performed By: #### 2 321620, 8610084, 2306550, 20074998, 0834426 #### [facility] [address] [place] [address] Protein [Mass/Vol] 7.1 g/dL Normal 6.0-7.8 [facility] Comment on above: Performed By: #### 2 830081, 2205279, 4304936, 59337561, 7830302 #### [facility] [address] [place] [address] Sodium [Moles/Vol] 142 mmol/L Normal 135-145 [facility] Comment on above: Performed By: #### 2 184251, 6312330, 4718169, 80755295, 3597709 #### [facility] [address] [place] [address] Urea nitrogen [Mass/Vol] 36 mg/dL High 5-21 [facility] Comment on above: Performed By: #### 2 802985, 5857896, 0798093, 74980800, 8428834 #### [facility] [address] [place] [address] Urea nitrogen/Creatinine [Mass ratio] 45 No Units High 10-20 [facility] Comment on above: Performed By: #### 2 711711, 0247176, 4508041, 37070266, 1008627 #### [facility] [address] [place] [address] [employer] 08-02-2023 Forms [id number] Normal [facility] HEMATOLOGYOrdered By: SYSTEM SYSTEM on 08-02-2023 Basophils/100 WBC (Bld) 0.6 % Normal 0.0 - 2.0 % [facility] Basophils/Leukocytes Auto (Bld) [Pure # fraction] 0.1 E9/L Normal 0.0 - 0.2 E9/L [facility] Eosinophils/100 WBC (Bld) 1.4 % Normal 0.0 - 8.0 % [facility] Eosinophils/Leukocyte s Auto (Bld) [Pure # fraction] 0.1 E9/L Normal 0.0 - 0.5 E9/L [facility] Lymphocytes/100 WBC (Bld) 17.9 % Normal 14.0 - 50.0 % [facility] Lymphocytes/Leukocyte s Auto (Bld) [Pure # fraction] 1.6 E9/L Normal 1.0 - 4.0 E9/L [facility] Monocytes/100 WBC (Bld) 8.7 % Normal 4.0 - 14.0 % [facility] Monocytes/Leukocytes Auto (Bld) [Pure # fraction] 0.8 E9/L Normal 0.2 - 1.0 E9/L [facility] Neutrophils/100 WBC (Bld) 71.4 % Normal 36.0 - 75.0 % [facility] Neutrophils/Leukocyte s Auto (Bld) [Pure # fraction] 6.4 E9/L Normal 2.0 - 7.5 E9/L [facility] HEMATOLOGYOrdered By: Dionicio Elizabeth on 08-02-2023 Erythrocyte distribution width (RBC) [Ratio] 18.1 % High 10.9 - 14.2 % [facility] Hematocrit (Bld) [Volume fraction] 39.7 % Normal 34.0 - 46.0 % [facility] Hemoglobin (Bld) [Mass/Vol] 13.2 g/dL Normal 12.0 - 16.0 gm/dL [facility] MCH (RBC) [Entitic mass] 31.4 pg Normal 27.0 - 34.0 pg [facility] MCHC (RBC) [Mass/Vol] 33.2 g/dL Normal 31.4 - 36.0 gm/dL [facility] MCV (RBC) [Entitic vol] 94.7 fL Normal 80.0 - 100.0 fL [facility] Platelet mean volume (Bld) [Entitic vol] 10.0 fL Normal 6.4 - 10.8 fL [facility] Platelets (Bld) [#/Vol] 299.0 E9/L Normal 150.0 - 500.0 E9/L [facility] RBC (Bld) [#/Vol] 4.2 E12/L Low 4.3 - 5.9 E12/L [facility] WBC corrected for nucl RBC Auto (Bld) [#/Vol] 9.0 E9/L Normal 4.0 - 11.0 E9/L [facility] Lipid Panelon 08-02-2023 Cholesterol [Mass/Vol] 200 mg/dL Normal 120-200 [facility] Comment on above: Performed By: #### 2 718017, 3901423, 4345935, 67514169, 1888911 #### [facility] [address] [place] [address] Cholesterol in HDL [Mass/Vol] 59 mg/dL Invalid Interpretation Code [facility] Comment on above: Result Comment: HDL > or equal to 60 mg/dL: Low cardiovascular risk HDL < 40 mg/dL : High cardiovascular risk Performed By: #### 2 473117, 0523897, 3568871, 71112925, 2859633 #### [facility] [address] [place] [address] Cholesterol in LDL [Mass/Vol] 123 mg/dL Normal <=129 [facility] Comment on above: Performed By: #### 2 569427, 9579597, 2920277, 88210537, 6237086 #### [facility] [address] [place] [address] Cholesterol in VLDL [Mass/Vol] 19 mg/dL Normal 7-40 [facility] Comment on above: Performed By: #### 2 437015, 9568079, 4638601, 71871526, 4358839 #### [facility] [address] [place] [address] Triglyceride [Mass/Vol] 93 mg/dL Normal <=149 [facility] Comment on above: Performed By: #### 2 295203, 9781126, 1181159, 17997274, 6971033 #### [facility] [address] [place] [address] eGFRon 08-02-2023 GFR/1.73 sq M.predicted among non-blacks MDRD (S/P/Bld) [Vol rate/Area] 75 mL/min/1.73 m2 Normal >=59 [facility] Comment on above: Order Comment: Order added by Discern Expert. Result Comment: Director Of Retail Merchandising nelly kidney disease could be indicated at eGFR's of less than 60 mL/min/1.73m2. Kidney failure is indicated at less than 15 mL/min/1.73m2. Performed By: #### 2 314607, 2679004, 5730497, 27259053, 4677834 #### [facility] [address] [place] [address] Yane 12-04-2019 CNPN Telephone ([facility]) KAE MARTIN ([id number]) 1945 F Date Time Provider Department 12/04/19 ALEX CORONA [facility] During your visit today, we recorded the following information about you: Ananya Pederson JULIAN 12/04/2019 3:52 PM Signed Please update HM ? Patient no longer needs colonoscopy, aged out Allergies As of Date: 12/04/2019 (No Known Allergies) Date Reviewed: 02/01/2018 Reviewed by: Blake Jarvis (Oa) - Fully Assessed Reason for Visit: colonoscopy [Other] Prescriptions as of 12/04/2019 Sig: NIFEDIPINE ER 60 MG TABLET,EX* Take 1 tablet by mouth once d* LISINOPRIL 20 MG-HYDROCHLOROT* Take 1 tablet by mouth once d* CARVEDILOL 6.25 MG TABLET Take 1 tablet by mouth twice * PREDNISOLONE ACETATE 1 % EYE * Use 1 Drop in the right eye f* PREDNISOLONE ACETATE 1 % EYE * Use 1 Drop in the left eye fo* Problem List As Of Date 12/04/2019 Noted Resolved 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] 07/21/2016 12/28/2017 Tobacco use disorder [F17.200] 07/21/2016 Hypertension, essential [I10] 12/28/2017 Encounter Status:Closed by ALEX CORONA MD on 12/05/19 Normal [facility] Vital Signs Date Time Vital Sign Value Performing Clinician Navya ulloa 05-28-2022 13:37-0400 Blood Pressure Location Elpidio Gilmore [facility] 05-28-2022 13:37-0400 Diastolic blood pressure 106 mm[Hg] Elpidio Gilmore [facility] 05-28-2022 13:37-0400 Heart rate 118 /min Elpidio Gilmore [facility] 05-28-2022 13:37-0400 Mean blood pressure 137 mm[Hg] Elpidio Gilmore [facility] 05-28-2022 13:37-0400 Respiratory rate 18 /min Elpidio Gilmore [facility] 05-28-2022 13:37-0400 SaO2% (BldA) [Mass fraction] 97 % Elpidio Mando [facility] 05-28-2022 13:37-0400 Systolic blood pressure 198 mm[Hg] Elpidio Mando [facility] 05-28-2022 12:47-0400 Blood Pressure Location Elpidio Mando [facility] 05-28-2022 12:47-0400 Diastolic blood pressure 103 mm[Hg] Elpidio Mando [facility] 05-28-2022 12:47-0400 Heart rate 112 /min Elpidio Mando [facility] 05-28-2022 12:47-0400 Mean blood pressure 123 mm[Hg] Elpidio Mando [facility] 05-28-2022 12:47-0400 Respiratory rate 16 /min Elpidio Mando [facility] 05-28-2022 12:47-0400 SaO2% (BldA) [Mass fraction] 97 % Elpidio Mando [facility] 05-28-2022 12:47-0400 Systolic blood pressure 163 mm[Hg] Elpidio Mando [facility] 05-28-2022 11:32-0400 Blood Pressure Location Elpidio Mando [facility] 05-28-2022 11:32-0400 Diastolic blood pressure 96 mm[Hg] Elpidio Mando [facility] 05-28-2022 11:32-0400 Heart rate 105 /min Elpidio Mando [facility] 05-28-2022 11:32-0400 Mean blood pressure 131 mm[Hg] Elpidio Mando [facility] 05-28-2022 11:32-0400 Respiratory rate 16 /min Elpidio Gilmore [facility] 05-28-2022 11:32-0400 SaO2% (BldA) [Mass fraction] 97 % Elpidioalexus Gilmore [facility] 05-28-2022 11:32-0400 Systolic blood pressure 200 mm[Hg] Elpidio Gilmore [facility] 05-28-2022 10:45-0400 Body temperature 97.88 [degF] Elpidio Gilmore [facility] 05-28-2022 10:45-0400 Respiratory rate 13 /min Elpidio Gilmore [facility] 05-28-2022 10:19-0400 Respiratory rate 18 /min Elpidio Gilmore [facility] 05-28-2022 10:04-0400 Body temperature 97.52 [degF] Elpidio Gilmore [facility] Encounters Encounter Date Encounter Type Care Provider Facility Start: 09-06-2023 End: 09-07-2023 ambulatory Austyn Choi Facility:[facility] Start: 08-06-2023 ambulatory Austyn Choi Facility :[facility] Start: 08-02-2023 End: 08-03-2023 ambulatory Austyn Choi Facility:[facility] Start: 08-02-2023 End: 08-03-2023 ambulatory Austyn Choi Facility:[facility] Start: 08-02-2023 End: 08-02-2023 Lab Drop off Austyn Choi [facility] Start: 08-02-2023 End: 08-02-2023 Lab Drop off Austyn Choi [facility] Start: 05-28-2022 End: 05-28-2022 Emergency department patient visit Elpidio Gilmore [facility] Procedures Date Procedure Procedure Detail Performing Clinician Oophorectomy Austyn Choi Immunizations Immunization Date Immunization Notes Care Provider Fa cility 05-28-2022 tetanus toxoid, redu jean-paul diphtheria toxoid, and acellular pertussis vaccine, adsorbed Elpidioalexus Gilmore [facility] Comment on above: Result Comment: Left deltoid 07-28-2021 influenza virus vacc ine, unspecified formulation Austyn Choi [facility] 07-28-2021 SARS-CoV-2 (COVID-19 ) mRNA BNT-162b2 vax Austyn Choi [facility] 11-03-2020 SARS-CoV-2 (COVID-19 ) mRNA BNT-162b2 CORD:USE [facility] Blood [facility] Austyn Jimbo [facility] Comment on above: Result Comment: 2022: [id number] 10-14-2020 SARS-CoV-2 (COVID-19 ) mRNA BNT-162b2 CORD:USE [facility] Blood Bankjuan Zaman Jimbo [facility] Comment on above: Result Comment: 2022: [id number] 07-21-2020 influenza virus vacc ine, unspecified formulation Austyn Choi [facility] 07-09-2018 influenza virus vacc ine, unspecified formulation Austyn Choi [facility] 12-28-2017 pneumococcal conjuga te vaccine, 13 valent Austyn Choi [facility] 12-28-2017 tetanus toxoid, redu jean-paul diphtheria toxoid, and acellular pertussis vaccine, adsorbed Austyn Choi [facility] 07-21-2016 influenza virus vacc ine, unspecified formulation Austyn Choi [facility] 07-21-2016 pneumococcal polysaccharide vaccine, 23 valent Austyn Choi [facility] Payers Date Payer Category Payer Unknown [id number] 1945 Unknown [id number] 1945 Unknown [id number] [id number] 1945 Unknown [id number] 1945 Unknown [id number] [id number] Social History Date Type Detail Facility Start: 05-28-2022 End: 08-02-2023 Tobacco smoking status Heavy tobacco smoker (finding) [facility] Sex Assigned At Female [facility] Functional Status Date Assessment Result Facility 05-28-2022 Functional Status N/A [facility] Clinical Note 10-02-2023 Note Date & Type Note Facility 10-02-2023 Note Clinicals Social Wor ker followed up on [facility]. [phone]. Left voicemail waiting for all call back. If anyone needs to also follow up with them. [email or web address]. Will continue to monitor situation. Per request of Jimbo Talbot and staff. [facility] Evaluation + Plan note 05-28-2022 Note Date & Type Note Facility 05-28-2022 Evaluation + Plan note Extrac domonique from: Title:ED Note Author:Elpidio Gilmore DO Date: Abrasion of face (S00.81XA: Abrasion of other part of head, initial encounter) Accidental fall (W19.XXXA: Unspecified fall, initial encounter) Closed fracture nasal bone (S02.2XXA: Fracture of nasal bones, initial encounter for closed fracture) Closed head injury (S09.90XA: Unspecified injury of head, initial encounter) Hypertension (I10: Essential (primary) hypertension) Orders: tetanus/diphtheria/pertussis, acel (Tdap), 0.5 mL, Injection, Intramuscular-Immunization, Once, Stop date 05/28/22 10:03:00 EDT, STAT, Start date 05/28/22 10:03:[address] Head or Brain w/o Contrast CT Maxillofacial w/o Contrast CT Spine Cervical w/o Contrast [facility] Hospital Discharge instructions 05-28-2022 Note Date & Type Note Facility 05-28-2022 Hospital Discharg e instructions Patient Education 05/28/2022 11:53:07 Nasal Fracture Nasal Fracture A nasal fracture is a break or crack in the bones of the nose or the tissue that helps to form the nose (cartilage). Minor breaks do not require treatment and usually heal on their own after about one month. Serious breaks may require treatment that could include surgery. What are the causes? A nasal fracture is usually caused by the strong force of a direct hit to the nose (blunt injury). This type of injury often occurs from: Playing a contact sport. Being involved in a car accident. Falling. Getting punched. What are the signs or symptoms? Symptoms of this condition include: Pain. Swelling of the nose. Bleeding from the nose. Bruising around the nose or bruising around the eyes (black eyes). Crooked appearance of the nose. How is this diagnosed? This condition may be diagnosed based on a physical exam. During the exam, the health care provider will: Gently feel the nose for signs of broken bones. Look inside the nostrils to check if there is a blood-filled swelling on the dividing wall between the nostrils (septal hematoma). An X-ray of the nose may be taken. Sometimes, an X-ray may not show a nasal fracture even when one is present. In some cases, X-rays or a CT scan may be taken again 1 5 days later after the swelling has gone down. How is this treated? Treatment for this condition depends on the severity of the injury. Minor fractures that have not caused deformity often do not require treatment. For more serious fractures that have caused bones to move out of position, treatment may involve one of the following: ?Repositioning the bones without surgery. The health care provider may be able to do this in his or her office after you are given medicine to numb the nasal area (local anesthetic). ?Surgery. If surgery is needed, it will be done after the swelling is gone. Surgery will stabilize and align the fracture. Follow these instructions at home: Activity Return to your normal activities as told by your health care provider. Ask your health care provider what activities are safe for you. Avoid contact sports for 3 4 weeks or as told by your health care provider. General instructions If directed, put ice on the injured area: ?Put ice in a plastic bag. ?Place a towel between your skin and the bag. ?Leave the ice on for 20 minutes, 2 3 times a day. Take nqdl-tfc-jhgbtcv and prescription medicines only as told by your health care provider. If your nose starts to bleed, sit in an upright position while you squeeze the soft parts of your nose against the dividing wall between your nostrils (septum) for 10 minutes. Try to avoid blowing your nose. Keep all follow-up visits as told by your health care provider. This is important. Contact a health care provider if: Your pain increases or becomes severe. You continue to have nosebleeds. The shape of your nose does not return to normal within 5 days. You have pus draining out of your nose. Get help right away if: You have bleeding from your nose that does not stop after you pinch your nostrils closed for 20 minutes and keep ice on your nose. You have clear fluid draining out of your nose. You notice swelling near the septum inside the nose. This swelling is a septal hematoma that must be drained to help prevent infection. You have difficulty moving your eyes. You have repeated vomiting. Summary A nasal fracture is a break or crack in the bones or cartilage of the nose. The fracture is usually caused by a blunt injury to the nose. Symptoms include pain, swelling, and facial bruising. Nasal fractures may heal on their own, or your health care provider may need to move the bones back into proper position. In some cases, surgery may be needed. This information is not intended to replace advice given to you by your health care provider. Make sure you discuss any questions you have with your health care provider. Document Released: 09/14/2001 Document Revised: 02/18/2019 Document Reviewed: 02/18/2019 [employer] Patient Education 2020 [employer]. 05/28/2022 11:53:07 Head Injury, Adult Head Injury, Adult There are many types of head injuries. Head injuries can be as minor as a bump, or they can be a serious medical issue. More severe head injuries include: A jarring injury to the brain (concussion). A bruise (contusion) of the brain. This means there is bleeding in the brain that can cause swelling. A cracked skull (skull fracture). Bleeding in the brain that collects, clots, and forms a bump (hematoma). After a head injury, most problems occur within the first 24 hours, but side effects may occur up to 7 10 days after the injury. It is important to watch your condition for any changes. You may need to be observed in the emergency department or urgent care, or you may be admitted to the hospital. What are the causes? There are many possible causes of a head injury. A serious head injury may be caused by a car accident, bicycle or motorcycle accidents, sports injuries, and falls. What are the symptoms? Symptoms of a head injury include a contusion, bump, or bleeding at the site of the injury. Other physical symptoms may include: Headache. Nausea or vomiting. Dizziness. Feeling tired. Being uncomfortable around bright lights or loud noises. Seizures. Trouble being awakened. Fainting. Mental or emotional symptoms may include: Irritability. Confusion and memory problems. Poor attention and concentration. Changes in eating or sleeping habits. Anxiety or depression. How is this diagnosed? This condition can usually be diagnosed based on your symptoms, a description of the injury, and a physical exam. You may also have imaging tests done, such as a CT scan or MRI. How is this treated? Treatment for this condition depends on the severity and type of injury you have. The main goal of treatment is to prevent complications and to allow the brain time to heal. Mild head injury If you have a mild head injury, you may be sent home and treatment may include: Observation. A responsible adult should stay with you for 24 hours after your injury and check on you often. Physical rest. Brain rest. Pain medicines. Severe head injury If you have a severe head injury, treatment may include: Close observation. This includes hospitalization with frequent physical exams. Medicines to relieve pain, prevent seizures, and decrease brain swelling. Breathing support. This may include using a ventilator. Treatments to manage the swelling inside the brain. Brain surgery. This may be needed to: ?Remove a blood clot. ?Stop the bleeding. ?Remove a part of the skull to allow room for the brain to swell. Follow these instructions at home: Activity Rest and avoid activities that are physically hard or tiring. Make sure you get enough sleep. Limit activities that require a lot of thought or attention, such as: ?Watching TV. ?Playing memory games and puzzles. ?Job-related work or homework. ?Working on the computer, using social media, and texting. Avoid activities that could cause another head injury, such as playing sports, until your health care provider approves. Having another head injury, especially before the first one has healed, can be dangerous. Ask your health care provider when it is safe for you to return to your regular activities, including work or school. Ask your health care provider for a geub-ir-apfv plan for gradually returning to activities. Ask your health care provider when you can drive, ride a bicycle, or use heavy machinery. Your ability to react may be slower after a brain injury. Do not do these activities if you are dizzy. Lifestyle Do not drink alcohol until your health care provider approves. Do not use drugs. Alcohol and certain drugs may slow your recovery and can put you at risk of further injury. If it is harder than usual to remember things, write them down. If you are easily distracted, try to do one thing at a time. Talk with family members or close friends when making important decisions. Tell your friends, family, a trusted colleague, and dining service worker about your injury, symptoms, and restrictions. Have them watch for any new or worsening problems. General instructions Take dyjb-gmt-ybqtnwj and prescription medicines only as told by your health care provider. Have someone stay with you for 24 hours after your head injury. This person should watch you for any changes in your symptoms and be ready to seek medical help. Keep all follow-up visits as told by your health care provider. This is important. How is this prevented? Work on improving your balance and strength to avoid falls. Wear a seatbelt when you are in a moving vehicle. Wear a helmet when riding a bicycle, skiing, or doing any other sport or activity that has a risk of injury. If you drink alcohol: ?Limit how much you use to: ?0 1 drink a day for women. ?0 2 drinks a day for men. ?Be aware of how much alcohol is in your drink. In the [place] one drink equals one 12 oz bottle of beer (355 mL), one 5 oz glass of wine (148 mL), or one 1 oz glass of hard liquor (44 mL). Take safety measures in your home, such as: ?Removing clutter and tripping hazards from floors and stairways. ?Using grab bars in bathrooms and handrails by stairs. ?Placing non-slip mats on floors and in bathtubs. ?Improving lighting in dim areas. Get help right away if: You have: ?A severe headache that is not helped by medicine. ?Trouble walking or weakness in your arms and legs. ?Clear or bloody fluid coming from your nose or ears. ?Changes in your vision. ?A seizure. You lose your balance. You vomit. Your pupils change size. Your speech is slurred. Your dizziness gets worse. You faint. You are sleepier than normal and have trouble staying awake. Your symptoms get worse. These symptoms may represent a serious problem that is an emergency. Do not wait to see if the symptoms will go away. Get medical help right away. Call your local emergency services (911 in the [place] Do not drive yourself to the hospital. Summary Head injuries can be minor or they can be a serious medical issue requiring immediate attention. Treatment for this condition depends on the severity and type of injury you have. Ask your health care provider when it is safe for you to return to your regular activities, including work or school. Head injury prevention includes wearing a seat belt in a motor vehicle, using a helmet on a bicycle, limiting alcohol use, and taking safety measures in your home. This information is not intended to replace advice given to you by your health care provider. Make sure you discuss any questions you have with your health care provider. Document Released: 09/17/2006 Document Revised: 10/15/2019 Document Reviewed: 10/10/2019 [employer] Patient Education 2020 [employer] 05/28/2022 11:53:07 Abrasion Abrasion An abrasion is a cut or a scrape on the outer surface of the skin. An abrasion does not go through all the layers of the skin. It is important to care for your abrasion properly to prevent infection. What are the causes? This condition is caused by falling on or gliding across the ground or another surface. When your skin rubs on something, the outer and inner layers of skin may rub off. What are the signs or symptoms? The main symptom of this condition is a cut or a scrape. The scrape may be bleeding, or it may appear red or pink. If the abrasion was caused by a fall, there may be a bruise under the cut or scrape. How is this diagnosed? An abrasion is diagnosed with a physical exam. How is this treated? Treatment for this condition depends on how large and deep the abrasion is. In most cases: Your abrasion will be cleaned with water and mild soap. This is done to remove any dirt or debris (such as particles of glass or rock) that may be stuck in the wound. An antibiotic ointment may be applied to the abrasion to help prevent infection. A bandage (dressing) may be placed on the abrasion to keep it clean. You may also need a tetanus shot. Follow these instructions at home: Medicines Take or apply [id number] and prescription medicines only as told by your health care provider. If you were prescribed an antibiotic medicine, apply it as told by your health care provider. Wound care Clean the wound 2 3 times a day, or as directed by your health care provider. To do this, wash the wound with mild soap and water, rinse off the soap, and pat the wound dry with a clean towel. Do not rub the wound. Keep the dressing clean and dry as told by your health care provider. There are many different ways to close and cover a wound. Follow instructions from your health care provider about: ?Caring for your wound. ?Changing and removing your dressing. You may have to change your dressing one or more times a day, or as directed by your health care provider. Check your wound every day for signs of infection. Check for: ?Redness, particularly a red streak that spreads out from the wound. ?Swelling or increased pain. ?Warmth. ?Fluid, pus, or a bad smell. If directed, put ice on the injured area to reduce pain and swelling: ?Put ice in a plastic bag. ?Place a towel between your skin and the bag. ? Leave the ice on for 20 minutes, 2 3 times a day. General instructions Do not take baths, swim, or use a hot tub until your health care provider says it is okay to do so. If possible, raise (elevate) the injured area above the level of your heart while you are sitting or lying down. This will reduce pain and swelling. Keep all follow-up visits as directed by your health care provider. This is important. Contact a health care provider if: You received a tetanus shot, and you have swelling, severe pain, redness, or bleeding at the injection site. Your pain is not controlled with medicine. You have redness, swelling, or more pain at the site of your wound. Get help right away if: You have a red streak spreading away from your wound. You have a fever. You have fluid, blood, or pus coming from your wound. You notice a bad smell coming from your wound or your dressing. Summary An abrasion is a cut or a scrape on the outer surface of the skin. An abrasion does not go through all the layers of the skin. Care for your abrasion properly to prevent infection. Clean the wound with mild soap and water 2 3 times a day. Follow instructions from your health care provider about taking medicines and changing your bandage (dressing). Contact your health care provider if you have redness, swelling or more pain in the wound area. Get help right away if you have a fever or if you have fluid, blood, pus, a bad smell, or a red streak coming from the wound. This information is not intended to replace advice given to you by your health care provider. Make sure you discuss any questions you have with your health care provider. Document Released: 06/27/2006 Document Revised: 08/30/2018 Document Reviewed: 05/01/2018 [employer] Patient Education 2020 [employer]. Follow Up Care 05/28/2022 10:00:35 With:Jay Allen Address:Unknown When:05/31/2022 11:52:52 Comments:Follow-up to discuss your chronic sinus disease as visualized on CT scan. Follow-up to discuss your nasal fracture. With:Addi CAMACHO Address: [address] [address]- Business (1) When:05/31/2022 11:52:29 Comments:Call the office of your primary care doctor to arrange for follow-up within the above-stated timeframe. Follow-up with your primary care doctor about this ED visit. You should review your labs, imaging, and diagnoses from this ED visit with your primary care physician. If you were prescribed medications you should discuss possible side-effects and drug interactions with your pharmacist. Call 911 or go to the nearest Emergency Department if you develop any new or worsening symptoms.Seek immediate medical attention if you develop: new or worsening headache, nausea, vomiting, confusion, weakness, loss of motion in your arms or legs, loss of control of your urine or stool, difficulty waking from sleep, or any new or worsening symptoms. [facility] Evaluation + Plan note Note Date & Type Note Facility Evaluation + Plan note Future Appointments Appointment Date:09/06/2023 02:20:00 PM Scheduled Provider:Austyn Choi MD Location:[facility] (formerly [facility] Appointment Type: Open [facility] Hospital course Narrative Note Date & Type Note Facility Hospital course Narrative No data available for this section [facility] Hospital Discharge instructions Note Date & Type Note Facility Hospital Discharge instructions No data available for this section [facility] Progress note Note Date & Type Note Facility Progress note No data available for this section [facility] Summary Purpose Family History No Family History Records Found No data available for this section No data available for this section No Family History Records Found Advance Directives No Advanced Directives Records FoundNo Advanced Directives Records Found Additional Source Comments INFORMATION SOURCE (unrecogn ized section and content) DATE CREATED AUTHOR 12/05/2019 [facility] DATE CREATED AUTHOR AUTHOR'S ORGANIZ ATION 10/02/2023 [facility] Care Team (unrecognized sect ion and content) Personnel Name: Addi CAMACHO DO Address: [facility] [address] Personnel Name: Addi CAMACHO DO Address: Address: [address] [place] [address] Personnel Name: Addi CAMACHO DO Address: Address: [address] [place] [address] FOR RECORDS PERTAINING TO PATIENTS WHO ARE OR HAVE BEEN ENROLLED IN A CHEMICAL DEPENDENCY/SUBSTANCEABUSE PROGRAM, SOME INFORMATION MAY BE OMITTED. This clinical summary was aggregated from multiple sources. Caution should be exercised in using it in the provision of clinical care. This summary normalizes information from multiple sources, and as a consequence, information in this document may materially change the coding, format and clinical context of patient data. In addition, data may be omitted in some cases. CLINICAL DECISIONS SHOULD BE BASED ON THE PRIMARY CLINICAL RECORDS. [facility]. provides no warranty or guarantee of the accuracy or completeness of information in this document.
[2024-02-11] MEDS: DEXTROSE 5 % IN WATER 1,000 ML 20 ML IV (10:07)
[2024-02-11] MEDS: ENSURE CLEAR 237 ML LIQUID PO ×3 (10:07→23:08)
[2024-02-11] MEDS: CEFTRIAXONE 1,000 MG in 0.9 % SODIUM CHLORIDE 50 ML 100 MG IV (10:37)
--- NOTE | 2024-02-11 11:19 | PM.HP ---
HPI H&P: HPI History of Present Illness Chief complaint: Poor Social Situation,Dementia,Hypernatremia,Leuko Narrative: 78 y/o female to ER with weakness and dementia. Lives alone and brother found her sitting on toilet covered in stool. Called EMS who reported home very unkempt. In ER patient very confused. CT head negative for acute change. Chest x-ray negative and UA without evidence of UTI. WBC elevated at 19K and sodium elevated at 157. Patient noted to be very cachectic with BMI 10.6. Admitted for treatment. Started IV fluids. PT/OT ordered and manager social services consulted. Remains confused this am. Opioid HPI Opioid Management Most Recent Opioid Data: Last Pain Assessment 02/11/24 11:00 Review of Systems ROS Status of ROS unobtainable due to mental status [facility] Medical History (Updated 02/11/24 @ 11:26 by Eliezer Pierre MD) Dementia ?F03.90 - Unspecified dementia, unspecified severity, without behavioral disturbance, psychotic disturbance, mood disturbance, and anxiety (ICD-10) Social History Highest level of school completed/degree received: don't know Meds Home Medications and Allergies Allergies Allergy/AdvReac Type Severity Reaction Status Date / Time No Known Drug Allergies Allergy Verified 02/10/24 17:22 Exam Constitutional Vital Signs, click to edit/add: Last Vital Signs Temp 97.4 F L 02/11/24 04:23 Pulse 105 H 02/11/24 10:00 Resp 18 02/11/24 08:00 BP 161/72 H 02/11/24 04:23 Pulse Ox 93 L 02/11/24 04:23 O2 Del Method Room Air 02/11/24 04:23 Documenting provider has reviewed patient's vital signs: yes Common normals: no apparent distress and alert Nutritional appearance: cachectic Orientation/consciousness: Yes oriented to person; not oriented to place and not oriented to time HENMT Common normals: normocephalic Eye Common normals: PERRL and EOMs intact bilaterally Respiratory Common normals: normal respiratory effort and clear to auscultation bilaterally Cardio Common normals: regular rate, regular rhythm, no gallops, no murmurs and no rub GI Common normals: Normal to inspection, nondistended, normoactive bowel sounds present and non-tender Extremity Common normals: no pedal edema Results Labs Labs: Short CBC 02/10/24 02/11/24 Range/Units 16:30 04:45 WBC 19.4 H 21.2 H (4.0-11.0) 10^3/uL Hgb 16.1 H 14.2 (12.0-16.0) g/dL Hct 50.8 H 44.0 (36.0-48.0) % Plt Count 357 242 (150-450) 10^3/uL BMP 02/10/24 02/11/24 16:30 05:42 Sodium 157 H 158 H Potassium 3.6 3.3 L Chloride 116 H 122 H* Carbon Dioxide 25.2 25.3 BUN 52.0 H 44.0 H Creatinine 1.20 H 0.84 Glucose 141 H 102 Calcium 9.8 8.7 Liver Function 02/10/24 02/11/24 Range/Units 16:30 05:42 Total Bilirubin 0.8 0.6 (0.2-1.0) mg/dL Direct Bilirubin 0.2 (0.0-0.2) mg/dL AST 16 13 L (15-37) U/L ALT 14 11 L (14-59) U/L Alkaline Phosphatase 101 82 (46-116) U/L Albumin 3.7 2.8 L (3.4-5.0) g/dL Urine 02/10/24 Range/Units 16:25 Urine Color Yellow (YELLOW) Urine Clarity Clear (CLEAR) Urine pH 5.5 (5.0-9.0) Ur Specific [place] >=1.030 A (1.005-1.025) Urine Protein 100 A (NEG/TRACE) mg/dL Urine Glucose (UA) Negative (NEGATIVE) mg/dL Assessment and Plan Assessment and Plan (1) Hypernatremia: (2) Cachexia: (3) Severe protein-calorie malnutrition: (4) Leukocytosis: (5) Generalized weakness: (6) Senile dementia without behavioral disturbance: (7) Poor social situation: Plan Patient with severe confusion and cachexia. Very underweight and severe PCM as evidenced by BMI 10.6 and low albumin. WBC elevated and add rocephin for possible infection. Sodium remains elevated and start D5W. Will need to slowly lower sodium and patient at high risk for complications and worsening mental status. Start PT/OT for weakness. Add ensure. Consult manager social services. Plan for at least a 2 midnight stay for inpatient medically necessary services. Urinary Catheter Management Urinary Catheter Management Urethral: Cath placed during this visit: yes Urethral indwelling: Yes Reason for continuing: measure accurate output Insertion date: 02/10/24 Insertion time: 16:30
--- NOTE | 2024-02-11 11:54 | CM.NOTE ---
Rounds made with Dr. Pierre. Ms. Paredes unable to answer questions appropriately. Will call family for plan of care.
[2024-02-11 12:11] LABS: Anion Gap 15.7; BUN Creatinine Ratio 42.6; Calcium 8.8 mg/dL (8.5-10.1); Carbon Dioxide 24.5 mmol/L (21.0-32.0); Chloride 120 mmol/L (98-107); Estimated GFR (African America >60 (>=60); Estimated GFR (Non-African Ame 53 (>=60); Glucose 214 mg/dL (74-106); Potassium 3.2 mmol/L (3.5-5.1); Sodium 157 mmol/L (136-145)
--- NOTE | 2024-02-11 12:23 | NUTR.NU ---
Chart reviewed. Pt is poor historian. She lives alone and has likely not been eating; unsure if she is able to obtain food. Diet and supplement orders in place; breakfast and lunch ordered but no documented PO intakes yet. Nutrition assessment to follow. Will continue to follow PRN.
--- NOTE | 2024-02-11 13:18 | CM.NOTE ---
Important Message from Medicare reviewed with linerAlan. Copy to chart and original to patient/family.
--- NOTE | 2024-02-11 13:29 | CM.NOTE ---
Referral faxed to [facility]. Roselia will let us know if able to accept.
--- NOTE | 2024-02-11 14:48 | CM.NOTE ---
Call received from Roselia at [facility] and they are able to accept KaeThanh Veloz will start the precert. Notified Alan Lockhart, Kae's brother, that [facility] is able to accept.
[2024-02-11 16:29] LABS: Anion Gap 14.6; Calcium 8.5 mg/dL (8.5-10.1); Carbon Dioxide 22.4 mmol/L (21.0-32.0); Chloride 114 mmol/L (98-107); Estimated GFR (African America >60 (>=60); Estimated GFR (Non-African Ame >60 (>=60); Glucose 159 mg/dL (74-106); Sodium 148 mmol/L (136-145)
[2024-02-11 16:44] LABS: Estimated Average Glucose 123 mg/dL; Glycohemoglobin A1C 5.9 % (4.5-6.2)
--- NOTE | 2024-02-11 17:49 | DIETREC ---
Recommend half-portions of food x 4 days. Recommend provide Ensure Clear between meals OR as meal replacement. Monitor for s/sx of refeeding syndrome.
[2024-02-12] VITALS (15 sets, daily range): BP systolic 142–180; BP diastolic 64–82; PULSE 72–116; TEMP 36.6–37.2; O2SAT 94–98; BMI 14.1
[2024-02-12 04:52] LABS: Basophils Absolute Auto 0.1 10^3/uL (0.0-0.1); Basophils Percent Auto 0.4 % (0.2-2.0); Eosinophils Absolute Auto 0.1 10^3/uL (0.0-0.7); Eosinophils Percent Auto 0.9 % (0.9-7.0); Hematocrit 36.7 % (36.0-48.0); Hemoglobin 11.7 g/dL (12.0-16.0); Immature Granulocytes Abs Auto 0.18 10^3/uL (0.00-0.03); Immature Granulocytes Pct Auto 1.2 % (0.0-0.5); Lymphocytes Absolute Auto 2.1 10^3/uL (1.2-3.8); Lymphocytes Percent Auto 13.3 % (20.5-60.0); Mean Corpuscular HGB Conc 31.9 g/dL (29.9-35.2); Mean Corpuscular Hemoglobin 31.1 pg (26.7-34.0); Mean Corpuscular Volume 97.6 fL (81.0-99.0); Mean Platelet Volume 10.8 fL (9.5-13.5); Monocytes Percent Auto 6.5 % (1.7-12.0); Neutrophils Absolute Auto 12.1 10^3/uL (1.4-6.5); Neutrophils Percent Auto 77.7 % (43.0-75.0); Platelet Count 194 10^3/uL (150-450); Red Blood Count 3.76 10^6/uL (4.20-5.40); White Blood Count 15.5 10^3/uL (4.0-11.0)
[2024-02-12 05:05] LABS: Phosphorus 2.9 mg/dL (2.6-4.7)
[2024-02-12 05:11] LABS: Alanine Aminotransferase 12 U/L (14-59); Albumin Globulin Ratio 0.7; Albumin Level 2.4 g/dL (3.4-5.0); Alkaline Phosphatase 71 U/L (46-116); Anion Gap 10.1; Aspartate Amino Transferase 14 U/L (15-37); BUN Creatinine Ratio 48.4; Bilirubin Total 0.5 mg/dL (0.2-1.0); Calcium 8.2 mg/dL (8.5-10.1); Carbon Dioxide 26.1 mmol/L (21.0-32.0); Chloride 115 mmol/L (98-107); Estimated GFR (African America >60 (>=60); Estimated GFR (Non-African Ame >60 (>=60); Globulin 3.4 g/dL; Glucose 118 mg/dL (74-106); Potassium 3.2 mmol/L (3.5-5.1); Sodium 148 mmol/L (136-145); Total Protein 5.8 g/dL (6.4-8.2)
[2024-02-12] MEDS: ENSURE CLEAR 237 ML LIQUID PO ×2 (06:14→21:01)
--- NOTE | 2024-02-12 09:39 | SWNOTE1 ---
Pt is approved to go to [facility]. SW notified case management.
--- NOTE | 2024-02-12 10:30 | PT.DAILY ---
Physical Therapy Daily Note PT Daily Note/Assess Start: 02/12/24 10:25 Freq: Status: Active Protocol: Document 02/12/24 10:25 NOLAN (Rec: 02/12/24 10:30 NOLAN Desktop) Physical Therapy Daily Note/Assessment Time In/Time Out Time In 10:06 Time Out 10:23 Pain In Pain N/A Pain Out Pain N/A Subjective Subjective Pt supine upon arrival. Pleasantly confused. Does agree to get into BS chair for breakfast at this time. Therapeutic Activity Time Therapeutic Activity Minutes (minutes) 8 Therapeutic Activity Units 1 Therapeutic Activity Treatment Bed Mobility Ability Moderate Assist Chair Transfer Ability Moderate Assist Therapeutic Activity Comments Pt performs supine>sit to EOB ModA to advance upper body. Pt sits EOB 5 min while consulting with Dr. Pierre and Anna. Pt does demonstrate occ posterior lean needing ModA to correct this. Pt then sit>stand ModA. Pt static stand 20 sec before needing break. Pt repeats she needs to urinate multiple times throughout session and is reminded she has a dia catheter in and she can go. Pt sit>stand again and amb with RW 20' to BS chair with ModA due to posterior lean. Assist for IV pole as well. Attempted seated LE strengthening/ROM ex but unable to follow these commands at this time. Pt remains in BS chair with call light in reach and chair alarm activated. Nursing aware pt is in chair. Total Physical Therapy Time Total Therapy Minutes 8 Total Physical Therapy Units 1 Summary Daily Note Summary Cont to demonstrate unsteady gait requiring ModA with amb. Would benefit from SNF to regain strength.
[2024-02-12] MEDS: CEFTRIAXONE 1,000 MG in 0.9 % SODIUM CHLORIDE 50 ML 100 MG IV (10:40)
--- NOTE | 2024-02-12 10:54 | PM.PN ---
Progress Note: Subjective Subjective Interval history: Patient alert this am and eating well. Remains confused and only oriented to person. Severe weakness and very unsteady when up and moving. Labs slowly improving. Denies nausea and no emesis. No SOB or cough. No chest pain or palpitations. Exam Constitutional Vital Signs, click to edit/add: Last Vital Signs Temp 98.1 F 02/12/24 08:10 Pulse 116 H 02/12/24 10:00 Resp 16 02/12/24 08:10 BP 150/64 H 02/12/24 08:10 Pulse Ox 97 02/12/24 08:10 O2 Del Method Room Air 02/12/24 08:10 Documenting provider has reviewed patient's vital signs: yes Common normals: no apparent distress and alert Orientation/consciousness: Yes oriented to person; not oriented to place and not oriented to time HENMT Common normals: normocephalic Eye Common normals: PERRL and EOMs intact bilaterally Respiratory Common normals: normal respiratory effort and clear to auscultation bilaterally Cardio Common normals: regular rate, regular rhythm, no gallops, no murmurs and no rub GI Common normals: Normal to inspection, nondistended, normoactive bowel sounds present and non-tender Extremity Common normals: no pedal edema Progress Note: Objective Labs Labs: Short CBC 02/12/24 Range/Units 04:36 WBC 15.5 H (4.0-11.0) 10^3/uL Hgb 11.7 L (12.0-16.0) g/dL Hct 36.7 (36.0-48.0) % Plt Count 194 (150-450) 10^3/uL BMP 02/11/24 02/11/24 02/12/24 11:46 15:59 04:36 Sodium 157 H 148 H 148 H Potassium 3.2 L 3.0 L 3.2 L Chloride 120 H 114 H 115 H Carbon Dioxide 24.5 22.4 26.1 BUN 43.0 H 40.0 H 30.0 H Creatinine 1.01 0.69 0.62 Glucose 214 H 159 H 118 H Calcium 8.8 8.5 8.2 L Liver Function 02/12/24 Range/Units 04:36 Total Bilirubin 0.5 (0.2-1.0) mg/dL AST 14 L (15-37) U/L ALT 12 L (14-59) U/L Alkaline Phosphatase 71 (46-116) U/L Albumin 2.4 L (3.4-5.0) g/dL Progress Note: A&P Assessment and Plan (1) Hypernatremia: (2) Cachexia: (3) Severe protein-calorie malnutrition: (4) Leukocytosis: (5) Generalized weakness: (6) Senile dementia without behavioral disturbance: (7) Poor social situation: Plan Labs improved and continue gentle hydration with D5W. Will slowly correct sodium. Dietary recommendations reviewed and patient at high risk for refeeding syndrome. Will monitor phosphorus and other electrolytes. Continue PT/OT for weakness. No clear etiology of leukocystosis but improving. Continue Rocephin. Likely will need SNF for rehab once ready for discharge in next 1-2 days. Urinary Catheter Management Urinary Catheter Management Urethral: Cath placed during this visit: yes Urethral indwelling: Yes Reason for continuing: prolonged immobilization Insertion date: 02/10/24 Insertion time: 16:30
--- NOTE | 2024-02-12 10:56 | CM.NOTE ---
Rounds made with Dr. Pierre. No plan for discharge today.
--- NOTE | 2024-02-12 11:20 | SWNOTE1 ---
No discharge today, SW sent updates to [facility].
--- NOTE | 2024-02-12 11:26 | SWNOTE1 ---
Updates sent to [facility] including progresse note from today, labs, PT/OT, nursing notes, and dietary notes.
[2024-02-12] MEDS: DEXTROSE 5 % IN WATER 1,000 ML 20 ML IV (13:33)
[2024-02-12] MEDS: HYDRALAZINE HCL 20 MG/ML VIAL 10 MG IVP (23:58)
[2024-02-13] VITALS (9 sets, daily range): BP systolic 117–156; BP diastolic 51–57; PULSE 80–102; TEMP 36.8–37.4; O2SAT 97–99
[2024-02-13 04:56] LABS: Basophils Absolute Auto 0.1 10^3/uL (0.0-0.1); Basophils Percent Auto 0.5 % (0.2-2.0); Eosinophils Percent Auto 0.2 % (0.9-7.0); Hematocrit 38.2 % (36.0-48.0); Hemoglobin 12.4 g/dL (12.0-16.0); Immature Granulocytes Abs Auto 0.35 10^3/uL (0.00-0.03); Immature Granulocytes Pct Auto 2.2 % (0.0-0.5); Lymphocytes Absolute Auto 1.6 10^3/uL (1.2-3.8); Lymphocytes Percent Auto 9.9 % (20.5-60.0); Mean Corpuscular HGB Conc 32.5 g/dL (29.9-35.2); Mean Corpuscular Hemoglobin 31.1 pg (26.7-34.0); Mean Corpuscular Volume 95.7 fL (81.0-99.0); Mean Platelet Volume 11.3 fL (9.5-13.5); Monocytes Percent Auto 6.3 % (1.7-12.0); Neutrophils Absolute Auto 13.1 10^3/uL (1.4-6.5); Neutrophils Percent Auto 80.9 % (43.0-75.0); Platelet Count 216 10^3/uL (150-450); Red Blood Count 3.99 10^6/uL (4.20-5.40); Red Cell Distribution Width 13.7 % (11.0-15.0); White Blood Count 16.2 10^3/uL (4.0-11.0)
[2024-02-13] MEDS: ENSURE CLEAR 237 ML LIQUID PO (05:11)
[2024-02-13 05:27] LABS: Alanine Aminotransferase 11 U/L (14-59); Albumin Globulin Ratio 0.7; Albumin Level 2.4 g/dL (3.4-5.0); Alkaline Phosphatase 72 U/L (46-116); Anion Gap 12.1; Aspartate Amino Transferase 15 U/L (15-37); Bilirubin Total 0.4 mg/dL (0.2-1.0); Calcium 8.4 mg/dL (8.5-10.1); Carbon Dioxide 23.7 mmol/L (21.0-32.0); Chloride 110 mmol/L (98-107); Estimated GFR (African America >60 (>=60); Estimated GFR (Non-African Ame >60 (>=60); Globulin 3.6 g/dL; Glucose 126 mg/dL (74-106); Sodium 143 mmol/L (136-145)
[2024-02-13 05:33] LABS: Potassium 2.8 mmol/L (3.5-5.1)
[2024-02-13] MEDS: POTASSIUM CHLORIDE IN WATER 10 MEQ/100 ML PIGGYBACK 100 MEQ IV ×2 (06:12→07:16)
[2024-02-13] MEDS: POTASSIUM CHLORIDE 10 MEQ ER TABLET 40 MEQ PO (06:12)
--- NOTE | 2024-02-13 10:33 | P.DS_ITS ---
DS: Providers Provider Date of admission: 02/11/24 09:23 Primary care physician: JAZMINE CHO Consults: 02/10/24 Consult to Dietitian Routine Reason for consultation: malnutrition 02/10/24 18:48 Occupational Therapy Eval and Treat Routine Reason for consultation: weakness Has provider been notified: No Physical Therapy Eval and Treat Routine Reason for consultation: weakness Has provider been notified: No 02/10/24 18:53 Consult to Manager Performance Improvement Routine Has provider been notified: No Reason for consult:: Housing/Alf DS: Diagnosis Discharge Diagnosis (1) Hypernatremia: (2) Cachexia: (3) Severe protein-calorie malnutrition: (4) Leukocytosis: (5) Generalized weakness: (6) Senile dementia without behavioral disturbance: (7) Poor social situation: DS: Summary Hospital Course Hospital Course: Reason for admission: See H&P for details. 78 y/o female to ER with weakness and dementia. Lives alone and brother found her sitting on toilet covered in stool. Called EMS who reported home very unkempt. In ER patient very confused. CT head negative for acute change. Chest x-ray negative and UA without evidence of UTI. WBC elevated at 19K and sodium elevated at 157. Patient noted to be very cachectic with BMI 10.6. Admitted for treatment. Hospital course: Started IV fluids and sodium unchanged overnight. Started D5W at 20 mL/hr due to weight and risk of complications. WBC elevated but no source of infection and added rocephin. PT/OT ordered and neonatal social worker consulted. Remained confused during hospital stay. Seen by atm manager and recommended monitoring for refeeding syndrome with labs and smaller portions. Patient eating well. Labs slowly improved. Severe weakness and PT recommended SNF. Information sent to insurance. Sodium improved and normal. WBC improved. Vitals stable. Received approval for SNF and transferred in stable condition. Will complete course of antibiotics with cefdinir. Time Spent with Patient Time attestation: Total time spent providing and/or coordinating discharge services: Time spent: greater than 30 minutes Quality: Stroke Symptom Onset Unknown: No Exam Constitutional Vital Signs, click to edit/add: Last Vital Signs Temp 99.3 F 02/13/24 08:10 Pulse 94 H 02/13/24 10:00 Resp 18 02/13/24 08:10 BP 156/57 H 02/13/24 08:10 Pulse Ox 99 02/13/24 08:10 O2 Del Method Room Air 02/13/24 08:10 Documenting provider has reviewed patient's vital signs: yes Common normals: no apparent distress and alert Orientation/consciousness: Yes oriented to person and Yes confused; not oriented to place and not oriented to time [facility] Common normals: normocephalic Eye Common normals: PERRL and EOMs intact bilaterally Respiratory Common normals: normal respiratory effort and clear to auscultation bilaterally Cardio Common normals: regular rate, regular rhythm, no gallops, no murmurs and no rub GI Common normals: Normal to inspection, nondistended, normoactive bowel sounds present and non-tender Extremity Common normals: no pedal edema DS: Data Data Completed and Pending Labs on day of discharge: Labs from last 24 hours 02/13/24 04:25 WBC 16.2 H RBC 3.99 L Hgb 12.4 Hct 38.2 MCV 95.7 MCH 31.1 MCHC 32.5 RDW 13.7 Plt Count 216 MPV 11.3 Neut % (Auto) 80.9 H Lymph % (Auto) 9.9 L [place] % (Auto) 6.3 Eos % (Auto) 0.2 L Baso % (Auto) 0.5 Neut # (Auto) 13.1 H Lymph # (Auto) 1.6 [place] # (Auto) 1.0 H Eos # (Auto) 0.0 Baso # (Auto) 0.1 Abs Immat Gran (auto) 0.35 H Imm/Tot Granulo (auto) 2.2 H Sodium 143 Potassium 2.8 L* Chloride 110 H Carbon Dioxide 23.7 Anion Gap 12.1 BUN 18.0 Creatinine 0.50 L Est GFR ( Amer) >60 Est GFR (Non-Af Amer) >60 BUN/Creatinine Ratio 36.0 Glucose 126 H Calcium 8.4 L Phosphorus 3.0 Magnesium 2.0 Total Bilirubin 0.4 AST 15 ALT 11 L Alkaline Phosphatase 72 Total Protein 6.0 L Albumin 2.4 L Globulin 3.6 Albumin/Globulin Ratio 0.7 Preliminary micro results at discharge 02/10/24 16:39 - Preliminary Blood NO GROWTH AT 36-48 HOURS. FINAL TO FOLLOW. 02/10/24 16:30 Blood Culture Result 1 - Preliminary Blood NO GROWTH AT 36-48 HOURS. FINAL TO FOLLOW. Discharge Plan Discharge Disposition: Xfer SNF Condition: Fair Discharge Medications: New cefdinir 300 mg capsule 300 mg PO BID 10 Days Qty: 20 0RF Print Language: Vincentian Forms: Portal Instructions
--- NOTE | 2024-02-13 10:47 | CM.NOTE ---
Rounds made with Dr. Pierre. Plan for discharge to [facility] today.
--- NOTE | 2024-02-13 10:48 | SWNOTE1 ---
Pt is medically stable for discharge to [facility] today. SW asked nursing if pt will need stretcher or wheelchair, nursing voiced stretcher.
--- NOTE | 2024-02-13 10:49 | SWNOTE1 ---
HAMILTON completed HENS and emailed over dc med rec, dc summary, labs, vitals, and nursing notes to Roselia at [facility].
--- NOTE | 2024-02-13 11:12 | SWNOTE1 ---
SW called and set up stretcher transport for 12:30. SW notified [facility] and nursing of time. SW called and left a voicemail for pt's brother in regards to dc time.
--- NOTE | 2024-02-13 11:14 | SWNOTE1 ---
Pt is going skilled to [facility].
--- NOTE | 2024-02-13 11:43 | PT.DAILY ---
Physical Therapy Daily Note PT Daily Note/Assess Start: 02/12/24 10:25 Freq: Status: Active Protocol: Document 02/13/24 11:29 NOLAN (Rec: 02/13/24 11:43 JOSEPHMAURISIO [id number]) Physical Therapy Daily Note/Assessment Time In/Time Out Time In 10:50 Time Out 11:05 Pain In Pain N/A Pain Out Pain N/A Subjective Subjective Pt sitting in BS chair upon arrival with significant R lateral lean. Pt is pleasantly confused. Therapeutic Exercise Time Therapeutic Exercise Minutes (minutes) 2 Therapeutic Exercise Units 0 Therapeutic Exercise Treatment Therapeutic Exercise Treatment attempted seated ex but unable to follow tactile/vc except for 2 reps of LAQ on L side. Therapeutic Activity Time Therapeutic Activity Minutes (minutes) 8 Therapeutic Activity Units 1 Therapeutic Activity Treatment Chair Transfer Ability Moderate Assist Therapeutic Activity Comments Need many cues to attempt to stand and amb. ModA to sit> stand to RW but remains in a forward flexed posture and complains of bilat foot pain. Returned to sitting in BS chair. Agrees to attempt this again- still needs MODA to reach standing at RW but unable to remains standing for longer than 5 sec. Pt is repositioned in chair with pillows to avoid lateral lean. Pts feet are elevated, call light in reach and needs met. Total Physical Therapy Time Total Therapy Minutes 10 Total Physical Therapy Units 1 Summary Daily Note Summary Pt has difficulty following commands and tolerating standing today due to foot pain (per pt). Would benefit from SNF to regain strength and return to PLOF.
== END 2024-02-13 12:45 | DRG 640 ==
LOC: ER 18:34 → MS 02-11 08:24 → ICU 02-12 18:20
PROVIDERS: Nurse Practitioner Acute Care; Admitting Provider Family Medicine; Emergency Provider Emergency Medicine; PCP Family Medicine; Visit Provider Family Medicine
DX: E87.0 Hyperosmolality and hypernatremia (principal); E43 Unspecified severe protein-calorie malnutrition; R64 Cachexia; Z68.1 Body mass index [BMI] 19.9 or less, adult; D72.829 Elevated white blood cell count, unspecified; R53.1 Weakness; F03.90 Unspecified dementia, unspecified severity, without behavioral disturbance, psychotic disturbance, mood disturbance, and anxiety; Z60.8 Other problems related to social environment; Z20.822 Contact with and (suspected) exposure to COVID-19
CPT/HCPCS: 36415; 51702; 70450; 71045; 80048; 80053; 80076; 81001; 82150; 83036; 83605; 83690; 83735; 84100; 84484; 85025; 87040; 87086; 87804; 87811; 93005; 96365; 96366; 96367; 96375; 97161; 97165; 97530; 97535; 99285; G0378

== ENCOUNTER 2024-02-27 00:47 | Outpatient (REF) | payer MEDICARE, SELFPAY ==
--- OUTSIDE RECORDS SUMMARY | 2024-02-27 01:01 | XMS_ITS | CCD ---
Author Organization [facility] Care Team Providers Care Conductor/Brakeman Name Role Phone Addi CAMACHO Primary Care [...] Medication Allergies] Propensity to adverse reactions (disorder) [facility] Repository Medications Current Medications Medication Drug Class(es) Dates Sig (Normalized) Sig (Original) amLODIPine 5 mg oral tablet (2 sources) Dihydropyridine Calcium Channel Pavel Start: 08-02-2023 take 1 tablet by mouth once daily Norvasc 5 mg Tab 5 mg = 1 tab(s), Oral, Daily, # 90 tab(s), Refills(s) 0, Pharmacy: [facility]/pharmacy #[id number], 142.2, cm, 08/02/23 13:35:00 EDT, Height/Length [...] Test Name Value Interpretation Reference Range Facility ED Note-Physicianon 02-14-20 ED Note-Physician [id number]# 1.00TIFF Normal [facility] Outside Hospital Correspo ndenceon 02-14-2024 Outside Hospital Correspondence [id number] #1.00TIFF Normal [facility] RAD - CT Reporton 02-14-2024 RAD - CT Report [id number] #1.00TIFF [facility] RAD - MISCon 02-14-2024 RAD - MISC [id number]# 1.00TIFF [facility] Consent for Flu Vaccineon Consent for Flu Vaccine [id number] #1.00TIFF Normal [facility] Physician Referralon 023 Physician Referral [id number] 7#1.00TIFF Normal [facility] Family Medicine Office/Clini c Noteon 09-06-2023 [...] tobacco smoker 1034F Depression Screening Negative 3352F [facility] Internal Ambulatory Referral Influenza immunization administered or [...] tobacco smoker 1034F Depression Screening Negative 3352F [facility] Internal Ambulatory Referral Influenza immunization administered or [...] tobacco smoker 1034F Depression Screening Negative 3352F [facility] Internal Ambulatory Referral Influenza immunization administered or [...] tobacco smoker 1034F Depression Screening Negative 3352F [facility] Internal Ambulatory Referral Influenza immunization administered or [...] tobacco smoker 1034F Depression Screening Negative 3352F [facility] Internal Ambulatory Referral Influenza immunization administered or [...] (Z68.1: Tito (more content not included)... Normal [facility] Comment on above: Result Comment: Elec tronically Signed By: Jimbo HOOVER, Austyn Plummer\.br\Date and Time Signed: 09/06/23 15:17 EST Physician Referralon 023 Physician Referral [id number] 01#1.00TIFF Normal [facility] Family Medicine Office/Clini c Noteon 08-07-2023 [...] and simple foods History of Present Illness Kae Martin is a 77-year-old female who presents [...] We will send an x-ray to the [facility] for them to get the left shoulder [...] with voice recognition artificial intelligence software, specifically Your Survival, NeighborMD and or Avaak. Substitutions may have occurred due to the inherent limitations of voice recognition and artificial intelligence software. Documentation services were performed after the patient or guardian consented to allow [employer] to record this visit. EMILIE apartment leasing specialist and provider reviewed before signing. EMILIE: Jensen Johns Follow-up No qualifying data available Problem List/Past [...] inactivated 07/28/2021 Recorde (more content not included)... [facility] Comment on above: Result Comment: Elec tronically Signed By: Austyn Choi MD\.br\Date and Time Signed: 08/07/23 08:13 EST\.br\Electronically Co-Signed By: Jensen Johns\.br\Date and Time Co-Signed: 08/02/23 15:56 EDT Interdisciplinary Note - Soc ial Workeron 08-06-2023 Interdisciplinary Note - Powder Nipper Consult for ambulatory SW received. Upon chart review it is noted that HH services were to be established through [facility] and this would include the ambulatory SW; order not put in correctly. [facility] HH is working with the PCP's office to get the corrected HH order and a vault person so that they can provide services, pending patient is home bound. SW will remain available. [facility] Physician Referralon 11-03-2 023 Physician Referral [id number]#1.00TIFF Normal [facility] Physician Referral [id number] 0#1.00TIFF Normal [facility] Ambulatory Visit Summaryon 1 10-02-2022 Ambulatory [...] PM EST With: Austyn Choi MD Where: [facility] Normal [facility] Auto Diffon 08-02-2023 Basophils/100 WBC (Bld) 0.6 % Normal 0.0-2.0 [facility] Comment on above: Order Comment: Order Added by Discern Expert. Performed By: #### 2 580559, 3951047, 0093707, 72210635, 5677030 ####[facility] [address] [place] [address] Basophils/Leukocytes Auto (Bld) [Pure # fraction] 0.1 E9/L Normal 0.0-0.2 [facility] Comment on above: Order Comment: Order Added by Discern Expert. Performed By: #### 2 956067, 8682646, 5789474, 45257844, 5659711 ####[facility] [address] [place] [address] Eosinophils/100 WBC (Bld) 1.4 % Normal 0.0-8.0 [facility] Comment on above: Order Comment: Order Added by Discern Expert. Performed By: #### 2 722681, 0232825, 2818699, 97782043, 4384044 ####[address] [place] [address] Eosinophils/Leukocyte s Auto (Bld) [Pure # fraction] 0.1 E9/L Normal 0.0-0.5 [facility] Comment on above: Order Comment: Order Added by Discern Expert. Performed By: #### 2 161437, 6777709, 4427429, 46065419, 7610739 ####[address] [address] Lymphocytes/100 WBC (Bld) 17.9 % Normal 14.0-50.0 [facility] Comment on above: Order Comment: Order Added by Discern Expert. Performed By: #### 2 766851, 4648706, 9673221, 17811091, 9097028 ####[address] [address] Lymphocytes/Leukocyte s Auto (Bld) [Pure # fraction] 1.6 E9/L Normal 1.0-4.0 [facility] Comment on above: Order Comment: Order Added by Discern Expert. Performed By: #### 2 282331, 6298433, 9572992, 92224370, 7735174 ####[address] [place] [address] Monocytes/100 WBC (Bld) 8.7 % Normal 4.0-14.0 [facility] Comment on above: Order Comment: Order Added by Discern Expert. Performed By: #### 2 951244, 0811977, 7483063, 50187085, 1009798 ####[address] [place] [address] Monocytes/Leukocytes Auto (Bld) [Pure # fraction] 0.8 E9/L Normal 0.2-1.0 [facility] Comment on above: Order Comment: Order Added by Discern Expert. Performed By: #### 2 391059, 0520453, 4743633, 78351888, 7912586 ####[address] [place] [address] Neutrophils/100 WBC (Bld) 71.4 % Normal 36.0-75.0 [facility] Comment on above: Order Comment: Order Added by Discern Expert. Performed By: #### 2 471787, 7641023, 4022147, 15844429, 3345224 ####[address] [place] [address] Neutrophils/Leukocyte s Auto (Bld) [Pure # fraction] 6.4 E9/L Normal 2.0-7.5 [facility] Comment on above: Order Comment: Order Added by Discern Expert. Performed By: #### 2 154445, 3492058, 8483336, 60383339, 3247458 ####[address] [address] CBC w/ Auto Diffon 3 Erythrocyte distribution width (RBC) [Ratio] 18.1 % High 10.9-14.2 [facility] Comment on above: Performed By: #### 2 584468, 9731806, 9778678, 70725628, 4636768 ####[address] [address] Hematocrit (Bld) [Volume fraction] 39.7 % Normal 34.0-46.0 [facility] Comment on above: Performed By: #### 2 736647, 3230396, 5807159, 37301034, 1385468 ####[address] [address] Hemoglobin (Bld) [Mass/Vol] 13.2 g/dL Normal 12.0-16.0 [facility] Comment on above: Performed By: #### 2 821264, 6182799, 4103596, 41336606, 4169447 ####[facility] [address] [place] [address] MCH (RBC) [Entitic mass] 31.4 pg Normal 27.0-34.0 [facility] Comment on above: Performed By: #### 2 250955, 8582688, 3354377, 94419205, 8170136 ####[address] MCHC (RBC) [Mass/Vol] 33.2 g/dL Normal 31.4-36.0 [facility] Comment on above: Performed By: #### 2 716997, 8597513, 3042750, 11299596, 4483052 ####[address] MCV (RBC) [Entitic vol] 94.7 fL Normal 80.0-100.0 [facility] Comment on above: Performed By: #### 2 311227, 4406984, 5008737, 54887576, 0988988 ####[address] [address] Platelet mean volume (Bld) [Entitic vol] 10.0 fL Normal 6.4-10.8 [facility] Comment on above: Performed By: #### 2 181554, 3667761, 4070272, 55367417, 5475908 ####[address] [address] Platelets (Bld) [#/Vol] 299.0 E9/L Normal 150.0-500.0 [facility] Comment on above: Performed By: #### 2 934886, 7645697, 4920318, 72649825, 6410458 ####[address] [address] RBC (Bld) [#/Vol] 4.2 E12/L Low 4.3-5.9 [facility] Comment on above: Performed By: #### 2 790577, 6943512, 4778652, 47386674, 7140276 ####[facility] [address] [place] [address] WBC corrected for nucl RBC Auto (Bld) [#/Vol] 9.0 E9/L Normal 4.0-11.0 [facility] Comment on above: Performed By: #### 2 626510, 7567053, 7568996, 38316458, 8477938 ####[facility] [address] [place] [address] CHEMISTRYOrdered By: SYSTEM SYSTEM on 08-02-2023 Albumin [...] 26 mmol/L Normal 21 - 31 mmol/L FT Remisol Creatinine [Mass/Vol] 0.8 mg/dL Normal 0.5 - 1.3 mg/dL [facility] Remisol GFR/1.73 sq M.predicted among non-blacks MDRD (S/P/Bld) [Vol rate/Area] 75 mL/min/1.73 m2 Normal >=59mL/min/1. 73 m2 [facility] Chem S Comment on above: Interpretive Data: C hronic kidney disease could be indicated at eGFR's of less than 60 mL/min/1.73m2. Kidney failure is indicated at less than 15 mL/min/1.73m2. Globulin (S) [Mass/Vol] 3.2 g/dL Normal 1.4 - 4.0 gm/dL [facility] Remisol Glucose [Mass/Vol] 124 mg/dL Normal 55 - 199 mg/dL [facility] Remisol Comment on above: Interpretive Data: I f this glucose result represents a fasting glucose, interpretation should refer to the following reference range: 55-99 mg/dL Potassium [Moles/Vol] 4.5 mmol/L Normal 3.5 - 5.3 mmol/L FT [facility] Protein [Mass/Vol] 7.1 g/dL Normal 6.0 - 7.8 gm/dL [facility] Sodium [Moles/Vol] 142 mmol/L Normal 135 - 145 mmol/L [facility] Triglyceride [Mass/Vol] 93 mg/dL Normal <=149mg/dL FT [facility] Urea nitrogen [Mass/Vol] 36 mg/dL High 5 - 21 mg/dL [facility] Remisol Urea nitrogen/Creatinine [Mass ratio] 45 mg/mg High 10 - 20 [facility] Remisol CMPon 08-02-2023 Albumin [Mass/Vol] 3.9 g/dL Normal 3.3-5.0 [facility] Comment on above: Performed By: #### 2 427785, 6693141, 9508769, 79529317, 2823544 ####[facility] [address] [place] [address] Albumin/Globulin (S) [Mass conc ratio] 1.2 Normal 1.1-2.2 [facility] Comment on above: Performed By: #### 2 150416, 8543834, 1735150, 93444736, 1216696 ####[facility] [address] [place] [address] ALP [Catalytic activity/Vol] 66 Int._Unit/L Normal 21-98 [facility] Comment on above: Performed By: #### 2 642738, 3046506, 8061757, 73323893, 6384139 ####[facility] [address] [place] [address] ALT No additional P-5'-P [Catalytic activity/Vol] 12 Int._Unit/L Normal 6-46 [facility] Comment on above: Performed By: #### 2 385853, 6472420, 5816236, 02716872, 9322497 ####[facility] [address] [place] [address] Anion gap [Moles/Vol] 15 mmol/L Normal 6-16 [facility] Comment on above: Performed By: #### 2 092691, 4347831, 6229581, 68360441, 8821385 ####[facility] [address] [place] [address] AST [Catalytic activity/Vol] 17 Int._Unit/L Normal 5-43 [facility] Comment on above: Performed By: #### 2 766714, 0339326, 9506420, 52132367, 8031658 ####[facility] [address] [place] [address] Bilirubin [Mass/Vol] 0.3 mg/dL Normal 0.0-1.1 [facility] Comment on above: Performed By: #### 2 214196, 3016002, 8693263, 77106119, 0365861 ####[facility] [address] [place] [address] Calcium [Mass/Vol] 9.5 mg/dL Normal 8.9-11.1 [facility] Comment on above: Performed By: #### 2 619150, 1273955, 6497047, 75962255, 4128751 ####[facility] [address] [place] [address] Chloride [Moles/Vol] 106 mmol/L Normal 101-111 [facility] Comment on above: Performed By: #### 2 882932, 8338915, 1164388, 46028470, 9072514 ####[facility] [address] [place] [address] CO2 [Moles/Vol] 26 mmol/L Normal 21-31 [facility] Comment on above: Performed By: #### 2 401131, 2432517, 2865990, 56233204, 1624678 ####[facility] [address] [place] [address] Creatinine [Mass/Vol] 0.8 mg/dL Normal 0.5-1.3 [facility] Comment on above: Performed By: #### 2 608839, 0263214, 2608772, 08818619, 4209275 ####[facility] [address] [place] [address] Globulin (S) [Mass/Vol] 3.2 g/dL Normal 1.4-4.0 [facility] Comment on above: Performed By: #### 2 214326, 6305686, 1894188, 42773314, 5116324 ####[facility] [address] [place] [address] Glucose [Mass/Vol] 124 mg/dL Normal 55-199 [facility] Comment on above: Result Comment: If t his glucose result represents a fasting glucose, interpretation should refer to the following reference range: 55-99 mg/dL Performed By: #### 2 752255, 1644437, 5345469, 93469341, 6037212 ####[facility] [address] [place] [address] Potassium [Moles/Vol] 4.5 mmol/L Normal 3.5-5.3 [facility] Comment on above: Performed By: #### 2 156744, 8652145, 8302464, 50294310, 0525297 ####[facility] [address] [place] [address] Protein [Mass/Vol] 7.1 g/dL Normal 6.0-7.8 [facility] Comment on above: Performed By: #### 2 715923, 5899997, 8785557, 21825568, 8837194 ####[facility] [address] [place] [address] Sodium [Moles/Vol] 142 mmol/L Normal 135-145 [facility] Comment on above: Performed By: #### 2 067850, 6771284, 4448306, 20840088, 0899758 ####[facility] [address] [place] [address] Urea nitrogen [Mass/Vol] 36 mg/dL High 5-21 [facility] Comment on above: Performed By: #### 2 933694, 7651074, 2916519, 96701469, 0018443 ####[facility] [address] [place] [address] Urea nitrogen/Creatinine [Mass ratio] 45 No Units High 10-20 [facility] Comment on above: Performed By: #### 2 122313, 6044146, 1841872, 08124725, 7711726 ####[facility] [address] [place] [address] Formson 08-02-2023 Forms [id number] #1.00TIFF Normal [facility] HEMATOLOGYOrdered By: SYSTEM SYSTEM on 08-02-2023 [...] 39.7 % Normal 34.0 - 46.0 % [facility] HemeAutoSS Hemoglobin (Bld) [Mass/Vol] 13.2 g/dL Normal 12.0 - 16.0 gm/dL [facility] HemeAutoSS MCH (RBC) [Entitic mass] 31.4 pg Normal 27.0 - 34.0 pg [facility] HemeAutoSS MCHC (RBC) [Mass/Vol] 33.2 g/dL Normal 31.4 - 36.0 gm/dL [facility] HemeAutoSS MCV (RBC) [Entitic vol] 94.7 fL Normal 80.0 - 100.0 fL [facility] HemeAutoSS Platelet mean volume (Bld) [Entitic vol] 10.0 fL Normal 6.4 - 10.8 fL [facility] HemeAutoSS Platelets (Bld) [#/Vol] 299.0 E9/L Normal 150.0 - 500.0 E9/L [facility] HemeAutoSS RBC (Bld) [#/Vol] 4.2 E12/L Low 4.3 - 5.9 E12/L [facility] HemeAutoSS WBC corrected for nucl RBC Auto (Bld) [#/Vol] 9.0 E9/L Normal 4.0 - 11.0 E9/L [facility] HemeAutoSS Lipid Panelon 08-02-2023 Cholesterol [Mass/Vol] 200 mg/dL Normal 120-200 [facility] Comment on above: Performed By: #### 2 273781, 9933100, 7545506, 46364860, 1053146 ####[facility] [address] [place] [address] Cholesterol in HDL [Mass/Vol] 59 mg/dL Invalid Interpretation Code [facility] Comment on above: Result Comment: HDL > or equal to 60 mg/dL: Low cardiovascular risk HDL < 40 mg/dL : High cardiovascular risk Performed By: #### 2 086412, 8851717, 0679819, 51253861, 5941026 ####[facility] [address] [place] [address] Cholesterol in LDL [Mass/Vol] 123 mg/dL Normal <=129 [facility] Comment on above: Performed By: #### 2 570783, 4617059, 3098926, 60841492, 2787842 ####[facility] [address] [place] [address] Cholesterol in VLDL [Mass/Vol] 19 mg/dL Normal 7-40 [facility] Comment on above: Performed By: #### 2 385956, 6935167, 6105997, 19617133, 2884736 ####[facility] [address] [place] [address] Triglyceride [Mass/Vol] 93 mg/dL Normal <=149 [facility] Comment on above: Performed By: #### 2 266435, 4394842, 8644186, 58157049, 7084263 ####[facility] [address] [place] [address] eGFRon 08-02-2023 GFR/1.73 sq M.predicted among non-blacks MDRD (S/P/Bld) [Vol rate/Area] 75 mL/min/1.73 m2 Normal >=59 [facility] Comment on above: Order Comment: Order added by Discern Expert. Result Comment: Garage Mechanic nelly kidney disease could be indicated at eGFR's of less than 60 mL/min/1.73m2. Kidney failure is indicated at less than 15 mL/min/1.73m2. Performed By: #### 2 594439, 0807177, 5299460, 76181745, 9973758 ####[facility] [address] [place] [address] [facility] 12-04-2019 CNPN Telephone ([facility]) KAE MARTIN ([id number]) 1945 F Date Time Provider Department 12/04/19 ALEX CORONA [facility] During your visit today, we recorded the following information about you: Ananya Dacia JORDAN 12/04/2019 3:52 PM Signed Please update HM [...] by ALEX CORONA MD on 12/05/[address] [facility] Vital Signs Date Time Vital Sign Value Performing Clinician Faci lity 08-28-2022 13:37-0400 Blood Pressure Location Elpidio Mando [facility] 05-28-2022 13:37-0400 Diastolic blood pressure 106 mm[Hg] Elpidio Mando [facility] 05-28-2022 13:37-0400 Heart rate 118 /min Elpidio Mando [facility] 05-28-2022 13:37-0400 Mean blood pressure 137 mm[Hg] Elpidio Mando [facility] 05-28-2022 13:37-0400 Respiratory rate 18 /min Elpidio Mando [facility] 05-28-2022 13:37-0400 SaO2% (BldA) [Mass fraction] 97 % Elpidio Mando [facility] 05-28-2022 13:37-0400 Systolic blood pressure 198 mm[Hg] Elpidio Mando [facility] 05-28-2022 12:47-0400 Blood Pressure Location Elpidio Mando [facility] 05-28-2022 12:47-0400 Diastolic blood pressure 103 mm[Hg] Elpidio Mando [facility] 05-28-2022 12:47-0400 Heart rate 112 /min Elpidio Mando [facility] 05-28-2022 12:47-0400 Mean blood pressure 123 mm[Hg] Elpidio Mando [facility] 05-28-2022 12:47-0400 Respiratory rate 16 /min Elpidio Mando [facility] 05-28-2022 12:47-0400 SaO2% (BldA) [Mass fraction] 97 % Elpidio Mando [facility] 05-28-2022 12:47-0400 Systolic blood pressure 163 mm[Hg] Elpidio Gilmore [facility] 05-28-2022 11:32-0400 Blood Pressure Location Elpidioalexus Gilmore [facility] 05-28-2022 11:32-0400 Diastolic blood pressure 96 mm[Hg] Elpidio Gilmore [facility] 05-28-2022 11:32-0400 Heart rate 105 /min Elpidio Gilmore [facility] 05-28-2022 11:32-0400 Mean blood pressure 131 mm[Hg] Elpidio Gilmore [facility] 05-28-2022 11:32-0400 Respiratory rate 16 /min Elpidio Gilmore [facility] 05-28-2022 11:32-0400 SaO2% (BldA) [Mass fraction] 97 % Elpidio Gilmore [facility] 05-28-2022 11:32-0400 Systolic blood pressure 200 mm[Hg] Elpidio Gilmore [facility] 05-28-2022 10:45-0400 Body temperature 97.88 [degF] Elpidio Gilmore [facility] 05-28-2022 10:45-0400 Respiratory rate 13 /min Elpidio Gilmore [facility] 05-28-2022 10:19-0400 Respiratory rate 18 /min Elpidio Gilmore [facility] 05-28-2022 10:04-0400 Body temperature 97.52 [degF] Elpidio Gilmore [facility] Encounters Encounter Date Encounter Type Care Provider Facility Start: 09-06-2023 End: 09-07-2023 ambulatory Austyn Choi Facility:[facility] Start: 08-06-2023 ambulatory Austyn Choi Facility :[facility] Start: 08-02-2023 End: 08-03-2023 ambulatory Austyn Choi Facility:[facility] Start: 08-02-2023 End: 08-03-2023 ambulatory Austyn Choi Facility:[facility] Start: 08-02-2023 End: 08-02-2023 Lab Drop off Austyn Choi [facility] Start: 08-02-2023 End: 08-02-2023 Lab Drop off Austny Choi [facility] Start: 05-28-2022 End: 05-28-2022 Emergency department patient visit Elpidio Gilmore [facility] Procedures Date Procedure Procedure Detail Performing Clinician Oophorectomy Austyn Choi Immunizations Immunization Date Immunization Notes Care Provider Fa cility 05-28-2022 tetanus toxoid, redu jean-paul diphtheria toxoid, and acellular pertussis vaccine, adsorbed Elpidio Gilmore [facility] Comment on above: Result Comment: Left deltoid 07-28-2021 influenza virus vacc ine, unspecified formulation Austyn Choi [facility] 07-28-2021 SARS-CoV-2 (COVID-19 ) mRNA BNT-162b2 vax Austynsilvia Choi [facility] 11-03-2020 SARS-CoV-2 (COVID-19 ) [facility] BNT[facility]162b2 [facility] Comment on above: Result Comment: 2022: [id number] 10-14-2020 SARS-CoV-2 (COVID-19 ) mRNA BNT-162b2 vax Austyn Choi [facility] Comment on above: Result Comment: 2022: [id number] 07-21-2020 influenza virus vacc ine, unspecified formulation Austyn Choi [facility] 07-09-2018 influenza virus vacc ine, unspecified formulation Austyn Choi [facility] 12-28-2017 pneumococcal conjuga te vaccine, 13 valent Austyn Choi [facility] 12-28-2017 tetanus toxoid, redu jean-paul diphtheria toxoid, and acellular pertussis vaccine, adsorbed Austyn Choi [facility] 07-21-2016 influenza virus vacc ine, unspecified formulation Austyn Choi [facility] 07-21-2016 pneumococcal polysaccharide vaccine, 23 valent Austyn Choi [facility] Payers Date Payer Category Payer Unknown [id number] 1945 Unknown [id number] 2.16.8 [id number] 1945 Unknown [id number] 2.16.8 [id number] 1945 Unknown [id number] 2.16.8 [id number] 1945 Unknown [id number] 2.16.8 [id number] Social History Date Type Detail Facility Start: 05-28-2022 End: 08-02-2023 Tobacco [facility] status [facility] [facility] Sex Assigned At Female [facility] Functional Status Date Assessment Result Facility 05-28-2022 Functional Status N/A [facility] Discharge summary note 02-14-2024 Note Date & Type Note Facility 02-14-2024 Note [id number] #[id number] [facility] History and physical note 02-14-2024 Note Date & Type Note Facility 02-14-2024 Note [id number]# 1.00TIFF [facility] Clinical Note 10-02-2023 Note Date & Type Note Facility 10-02-2023 Note Clinicals Social Wor ker followed up on [facility] referral. [phone]. Left voicemail waiting for all call back. If anyone needs to also follow up with them. [email or web address]. Will continue to monitor situation. Per request of Jimbo Talbot and staff. [facility] Evaluation + Plan note 05-28-2022 Note [...] w/o Contrast CT Spine Cervical w/o Contrast [facility] Hospital Discharge instructions 05-28-2022 Note Date & [...] minutes, 2 3 times a day. Take cyvn-bjo-sntfkyy and prescription medicines only as told by [...] 09/14/2001 Document Revised: 02/18/2019 Document Reviewed: 02/18/2019 [employer] Patient Education 2020 [employer]. 05/28/2022 11:53:07 Head Injury, Adult Head Injury, [...] Ask your health care provider for a zwqx-lp-tfqn plan for gradually returning to activities. Ask [...] your friends, family, a trusted colleague, and family service worker about your injury, symptoms, and restrictions. Have them watch for any new or worsening problems. General instructions Take dxjp-zrw-feseulv and prescription medicines only as told by [...] 09/17/2006 Document Revised: 10/15/2019 Document Reviewed: 10/10/2019 [employer] Patient Education 2020 [employer]. 05/28/2022 11:53:07 Abrasion Abrasion An abrasion is [...] instructions at home: Medicines Take or apply uzvh-ozb-dwqvibz and prescription medicines only as told by [...] 06/27/2006 Document Revised: 08/30/2018 Document Reviewed: 05/01/2018 [employer] Patient Education [employer] Follow Up Care 05/28/2022 10:00:35 With:Jay Allen Address:Unknown When:05/31/2022 11:52:52 Comments:Follow-up to discuss your chronic sinus disease as visualized on CT scan. Follow-up to discuss your nasal fracture. With:Addi CAMACHO Address: [address] [place], [place] [id number]- Business (1) When:05/31/2022 11:52:29 Comments:Call the office [...] sleep, or any new or worsening symptoms. [facility] Evaluation + Plan note Note Date & Type Note Facility Evaluation + Plan note Future Appointments Appointment Date:09/06/2023 02:20:00 PM Scheduled Provider:Austyn Choi MD Location:[facility] Appointment Type: Open [facility] Hospital course Narrative Note Date & Type Note Facility Hospital course Narrative No data available for this section [facility] Hospital Discharge instructions Note Date & Type Note Facility Hospital Discharge instructions No data available for this section [facility] Progress note Note Date & Type Note Facility Progress note No data available for this section [facility] Summary Purpose Family History No Family History Records Found No data available for this section No data available for this section No Family History Records Found Advance Directives No Advanced Directives Records FoundNo Advanced Directives Records Found Additional Source Comments INFORMATION SOURCE (unrecogn ized section and content) DATE CREATED AUTHOR 12/05/2019 [facility] DATE CREATED AUTHOR AUTHOR'S ORGANIZ ATION 02/17/2024 [facility] Care Team (unrecognized sect ion and content) Personnel Name: Addi CAMACHO DO Address: [address] [place] [address] Personnel Name: Addi CAMACHO DO Address: Address: [address] [place] [address] Personnel Name: Addi CAMACHO DO Address: Address: [address] [place] [address] FOR RECORDS PERTAINING TO PATIENTS WHO ARE [...] BE BASED ON THE PRIMARY CLINICAL RECORDS. [facility] [employer] [facility]. provides no warranty or guarantee of the accuracy or completeness of information in this document.
[2024-02-27 08:20] LABS: White Blood Count 12.7 10^3/uL (4.0-11.0)
== END 2024-02-27 00:48 | disposition home or self-care (01) ==
LOC: LAB 00:47
PROVIDERS: PCP Family Medicine; Visit Provider Family Medicine
DX: B99.9 Unspecified infectious disease (principal)
CPT/HCPCS: 36415; 85048